=== PATIENT | male | born 1975 | race Caucasian/White ===

== ENCOUNTER 2017-02-06 16:45 | Emergency (ER) | payer OTHER ==
[~2017-02-06] VITALS: Ht 170.2 cm; Wt 88.0 kg
[~2017-02-06 16:45] MED LIST: ALBU8I INH; CONTOUR1 XX; IBUP600T26 PO; LANTUS2P SC; LISI-363 PO; NAPR220T95 PO; NOVORP2 SQ
[2017-02-06 16:50] VITALS: BP 159/95; PULSE 100; RESP 16; TEMP 98; O2SAT 98
[2017-02-06] MEDS ORDERED: NOVOLOGMXP SQ ×2 (17:02)
[2017-02-06] MEDS ORDERED: ACETAMINOPHEN/HYDROcodone 325 MG/5 MG TAB PO ONE (17:15)
--- NOTE | 2017-02-06 17:16 | PD ---
HPI Chief Complaint: Pain: Acute or Chronic Time Seen by Provider: 16:54 Travel History International Travel<30 days: No Contact w/Intl Traveler<30days: No Traveled to known affect area: No History of Present Illness HPI This 41-year-old male says he been having pain in his left testicle for the last 3 months. He believes it started when he was lifting a heavy cement object. It has been present since that time and seems worse the last week. He has a little bit of trouble urinating sometimes has to hesitate before he goes. He is not aware of fever. He does not have a history of urethral discharge. He does have a history of diabetes PFSH Past Medical History Hx Anticoagulant Therapy: No Asthma: Yes Autoimmune Disease: Yes Cancer: No Cardiovascular Problems: Yes (HTN) Diabetes: Yes Patient Takes Glucophage: No Endocrine: Yes Immune Disorder: No Psychiatric: No Reproductive: No Respiratory: Yes (asthma) Thyroid Disease: No Tetanus Vaccination: < 5 Years Influenza Vaccination: Yes Past Surgical History Oral Surgery: Yes (Adenoids ) Other Surgery: Yes (adenoidectomy) Social History Alcohol Use: Yes (12 pack daily) Tobacco Use: Yes (10/28 PPD) Substance Use: No Allergies-Medications (Allergen,Severity, Reaction): Coded Allergies: Shellfish (Verified Allergy, Severe, 02/06/17) Reported Meds & Prescriptions Reported Meds & Active Scripts Active Reported Novolog Mix 70-30 Inj (Insulin Aspart Prota 70%/Aspart 30%) 1,000 Unit/10 Ml Vial 30 Units SQ HS Novolog Mix 70-30 Inj (Insulin Aspart Prota 70%/Aspart 30%) 1,000 Unit/10 Ml Vial 25 Units SQ DAILY Review of Systems General / Constitutional: No: Fever Eyes: No: Diploplia, Blurred Vision HENT: No: Headaches, Vertigo Cardiovascular: No: Chest Pain or Discomfort, Palpitations Respiratory: No: Cough, Shortness of Breath Gastrointestinal: No: Vomiting, Diarrhea Genitourinary: Positive: Dysuria Musculoskeletal: No: Myalgias, Arthralgias Skin: No Rash, No Itching Neurologic: No: Weakness Physical Exam Narrative GENERAL: Well-developed male SKIN: Focused skin assessment warm/dry. HEAD: Atraumatic. Normocephalic. EYES: Pupils equal and round. No scleral icterus. No injection or drainage. ENT: No nasal bleeding or discharge. Mucous membranes pink and moist. NECK: Trachea midline. No JVD. CARDIOVASCULAR: Regular rate and rhythm. No murmur appreciated. RESPIRATORY: No accessory muscle use. Clear to auscultation. Breath sounds equal bilaterally. GASTROINTESTINAL: Abdomen soft, non-tender, nondistended. Hepatic and splenic margins not palpable. : Right testicle is nontender. Somewhat diffuse tenderness of the left testicle. It is not high riding. There is no hernia palpable on the left side laying or standing MUSCULOSKELETAL: No obvious deformities. No clubbing. No cyanosis. No edema. NEUROLOGICAL: Awake and alert. No obvious cranial nerve deficits. Motor grossly within normal limits. Normal speech. PSYCHIATRIC: Appropriate mood and affect; insight and judgment normal. Data Data Last Documented VS Vital Signs Date Time Temp Pulse Resp B/P Pulse Ox O2 Delivery O2 Flow Rate FiO2 02/06/17 19:27 84 18 148/82 98 Room Air 02/06/17 16:50 98.0 Orders Urinalysis - C+S If Indicated (02/06/17 17:11) Acetamin-Hydrocod 325-5 Mg ([place] 5-325 (02/06/17 17:15) Complete Blood Count With Diff (02/06/17 17:53) Basic Metabolic Panel (Bmp) (02/06/17 17:53) Sodium Chlor 0.9% 1000 Ml Inj (Ns 1000 M (02/06/17 18:00) Ceftriaxone Inj (Rocephin Inj) (02/06/17 18:00) Us Testicles W Doppler (02/06/17 17:57) Insulin Human Regular Inj (Novolin R Inj (02/06/17 19:15) Labs Laboratory Tests Test 02/06/17 02/06/17 17:30 18:00 Urine Color YELLOW Urine Turbidity CLEAR Urine pH 6.0 Urine Specific [place] 1.034 Urine Protein NEG mg/dL Urine Glucose (UA) 1000 OR GREATER mg/dL Urine Ketones TRACE mg/dL Urine Occult Blood NEG Urine Nitrite NEG Urine Bilirubin NEG Urine Leukocyte Esterase NEG Urine Squamous Epithelial 0-5 /hpf Cells Microscopic Urinalysis Comment CULT NOT INDICATED White Blood Count 7.5 TH/MM3 Red Blood Count 4.41 MIL/MM3 Hemoglobin 14.3 GM/DL Hematocrit 41.3 % Mean Corpuscular Volume 93.7 FL Mean Corpuscular Hemoglobin 32.5 PG Mean Corpuscular Hemoglobin 34.6 % Concent Red Cell Distribution Width 11.6 % Platelet Count 268 TH/MM3 Mean Platelet Volume 8.6 FL Neutrophils (%) (Auto) 62.0 % Lymphocytes (%) (Auto) 22.8 % Monocytes (%) (Auto) 11.6 % Eosinophils (%) (Auto) 1.7 % Basophils (%) (Auto) 1.9 % Neutrophils # (Auto) 4.7 TH/MM3 Lymphocytes # (Auto) 1.7 TH/MM3 Monocytes # (Auto) 0.9 TH/MM3 Eosinophils # (Auto) 0.1 TH/MM3 Basophils # (Auto) 0.1 TH/MM3 CBC Comment DIFF FINAL Differential Comment Sodium Level 139 MEQ/L Potassium Level 4.5 MEQ/L Chloride Level 103 MEQ/L Carbon Dioxide Level 23.7 MEQ/L Anion Gap 12 MEQ/L Blood Urea Nitrogen 10 MG/DL Creatinine 0.85 MG/DL Estimat Glomerular Filtration 98 ML/MIN Rate Random Glucose 322 MG/DL Calcium Level 8.7 MG/DL [facility] Medical Decision Making Medical Screen Exam Complete: Yes Emergency Medical Condition: Yes Medical Record Reviewed: Yes Differential Diagnosis Differential includes epididymoorchitis, prostatitis and testicular cancer Narrative Course Urinalysis is negative for infection. Ultrasound of the testicle is normal. Impression is orchitis. He has been given Rocephin and Cipro will be given as an outpatient Diagnosis Primary Impression: Orchitis Scripts Hydrocodone-Acetaminophen (Lortab)7.5-325 Mg Tab1 Tab PO Q4H PRN (PAIN) #15 TAB Ref 0 Prov:Juan Benton MD 02/06/17 Ciprofloxacin (Cipro)500 Mg Ejb365 Mg PO BID #20 TAB Ref 0 Prov:Juan Benton MD 02/06/17 Disposition: 01 DISCHARGE HOME Condition: Stable Juan Benton MD Feb 06, 2017 17:16
[2017-02-06 17:49] LABS: BLOOD, URINE NEG (NEG); KETONE, URINE TRACE mg/dL (NEG); NITRITE,URINE NEG (NEG)
[2017-02-06 17:51] LABS: GLUCOSE,URINE 1000 OR GREATER mg/dL (NEG)
[2017-02-06 17:54] LABS: COMMENT (UR) CULT NOT INDICATED; CULTURE IF INDICATED CULT NOT INDICATED; SQUAMOUS EPITHELIAL CELL URINE 0-5 /hpf (0-5); URINE COLOR YELLOW (YELLW/STRAW)
[2017-02-06] MEDS ORDERED: cefTRIAXone INJ 1,000 MG in SODIUM CHLORIDE 0.9% INJ 100 ML IV ONE (18:00)
[2017-02-06] MEDS ORDERED: SODIUM CHLOR 0.9% 1000 ML INJ 1,000 ML IV ONE (18:00)
[2017-02-06 18:42] LABS: AUTOMATED NEUTROPHIL # 4.7 TH/MM3 (1.8-7.7); BASOPHIL # 0.1 TH/MM3 (0-0.2); BASOPHIL % 1.9 % (0.0-2.0); EOSINOPHIL # 0.1 TH/MM3 (0-0.4); EOSINOPHIL % 1.7 % (0.0-4.0); HEMATOCRIT 41.3 % (39.0-51.0); HEMO FLAGS DIFF FINAL; LYMPH % 22.8 % (9.0-44.0); LYMPHOCYTE # 1.7 TH/MM3 (1.0-4.8); MEAN CELL VOLUME 93.7 FL (80.0-100.0); MEAN CORPUSCULAR HEMOGLOBIN 32.5 PG (27.0-34.0); MEAN CORPUSCULAR HGB CONC 34.6 % (32.0-36.0); MONO % 11.6 % (0.0-8.0); PLATELET COUNT 268 TH/MM3 (150-450); RED BLOOD COUNT 4.41 MIL/MM3 (4.50-5.90); RED CELL DISTRIBUTION WIDTH 11.6 % (11.6-17.2); WHITE BLOOD COUNT 7.5 TH/MM3 (4.0-11.0)
[2017-02-06 18:49] LABS: POTASSIUM 4.5 MEQ/L (3.5-5.1)
[2017-02-06 18:52] LABS: BICARBONATE 23.7 MEQ/L (21.0-32.0)
[2017-02-06] MEDS ORDERED: INSULIN HUMAN REGULAR 1,000 UNITS/10 ML VIAL SQ ONE (19:15)
[2017-02-06 19:27] VITALS: BP 148/82; PULSE 84; RESP 18; O2SAT 98
--- NOTE | 2017-02-06 19:58 | RADHPO ---
EXAM DATE/TIME: 02/06/2017 18:38 [facility] COMPARISON: No previous studies available for comparison. INDICATIONS : Left testicle pain for three months after lifting heavy cement object, worse in the last week. MEDICAL HISTORY : Diabetic. Autoimmune disease. Hypertension. SURGICAL HISTORY : Appendectomy. Adenoidectomy. ENCOUNTER: Initial ACUITY: 3 months PAIN SCORE: 10/10 LOCATION: Bilateral testicles. MEASUREMENTS: RIGHT TESTICLE: 3.2 x 3.3 x 2.7cm LEFT TESTICLE: 3.0 x 3.1 x 2.6cm FINDINGS: RIGHT TESTICLE: Homogeneous echotexture without intra or extratesticular mass. Blood flow is symmetric and within no rmal limits. No hydrocele or varicocele. Tiny epididymal cyst. LEFT TESTICLE: Homogeneous echotexture without intra or extratesticular mass. Blood flow is symmetric and within no rmal limits. No hydrocele or varicocele. Epididymis is within normal limits. SCROTUM: Within normal limits. Mildly prominent left inguinal lymph nodes. CONCLUSION: Testicles are normal. No evidence of mass or torsion Julius Greenberg MD on February 06, 2017 at 19:55 Board Certified Radiologist. This report was verified electronically.
[2017-02-06] MEDS ORDERED: CIPR-9 PO ×2 (20:07→20:08)
[2017-02-06] MEDS ORDERED: HYDR-3534 PO ×2 (20:07→20:08)
[2017-02-06 20:17] VITALS: PULSE 82; RESP 18; O2SAT 98
== END 2017-02-06 20:38 | disposition home or self-care (01) ==
LOC: PHED 16:45
DX: N45.2 Orchitis (principal); E11.9 Type 2 diabetes mellitus without complications; I10 Essential (primary) hypertension; Z17.0 Estrogen receptor positive status [ER+]; Z79.4 Long term (current) use of insulin
CPT/HCPCS: 76870; 80048; 81001; 85025; 93975; 96365; 96372; 99284; J0696; J1815; J7030

== ENCOUNTER 2017-03-09 00:27 | Emergency (ER) | payer OTHER ==
[~2017-03-09] VITALS: Ht 172.7 cm; Wt 83.0 kg
[~2017-03-09 00:27] MED LIST changes: -ALBU8I INH; +CIPR-9 PO; -CONTOUR1 XX; +HYDR-3534 PO; -IBUP600T26 PO; -LANTUS2P SC; -LISI-363 PO; -NAPR220T95 PO; +NOVOLOGMXP SQ; -NOVORP2 SQ
[2017-03-09] MEDS ORDERED: NOVOLOGMXP SQ ×2 (00:40→00:41)
[2017-03-09 00:42] VITALS: BP 162/89; PULSE 112; RESP 24; TEMP 98; O2SAT 99
[2017-03-09] MEDS: RESP: ALBUTEROL 2.5 MG/IPRATROPIUM 0.5 MG NEB (SCH) INH ×5 (00:44→02:09)
[2017-03-09] MEDS ORDERED: methylPREDNISolone SOD SUCC 125 MG/2 ML VIAL IVP ONE (00:45)
[2017-03-09] MEDS ORDERED: SODIUM CHLORIDE 0.9% FLUSH 10 ML FLUSH IVF PRN (00:45)
[2017-03-09 01:09] VITALS: O2SAT 99
--- NOTE | 2017-03-09 01:16 | PD ---
HPI Chief Complaint: Respiratory Symptoms Time Seen by Provider: 00:35 Travel History International Travel<30 days: No Contact w/Intl Traveler<30days: No Traveled to known affect area: No History of Present Illness HPI The patient is a 41-year-old male that has had difficulty breathing since Thursday, 5 days. The breathing became worse today. He denies any fever. He is allergic to shellfish and he works with shellfish in the kitchen. He states shellfish don't bother him unless he actually eats them. He denies any nausea, vomiting or diarrhea. The patient admits to smoking one third pack a day. PFSH Past Medical History Hx Anticoagulant Therapy: No Asthma: Yes Autoimmune Disease: Yes Cancer: No Cardiovascular Problems: Yes (HTN) Diabetes: Yes (type 2 insulin dependent) Patient Takes Glucophage: No Endocrine: Yes Immune Disorder: No Psychiatric: No Reproductive: No Respiratory: Yes (ashtma as kid) Thyroid Disease: No Tetanus Vaccination: < 5 Years Past Surgical History Oral Surgery: Yes (Adenoids ) Other Surgery: Yes (adenoidectomy) Social History Alcohol Use: Yes (few beers daily) Tobacco Use: Yes (10/28 PPD) Substance Use: No Allergies-Medications (Allergen,Severity, Reaction): Coded Allergies: Shellfish (Verified Allergy, Severe, 03/09/17) Reported Meds & Prescriptions Reported Meds & Active Scripts Active Prednisone 50 Mg Tab 50 Mg PO BID Proventil Hfa 6.7 GM Inh (Albuterol Sulfate) 90 Mcg/Act Aer 2 Puff INH Q4-6H PRN Cipro (Ciprofloxacin HCl) 500 Mg Tab 500 Mg PO BID Reported Novolog Mix 70-30 Inj (Insulin Aspart Prota 70%/Aspart 30%) 1,000 Unit/10 Ml Vial 30 Units SQ DAILY Novolog Mix 70-30 Inj (Insulin Aspart Prota 70%/Aspart 30%) 1,000 Unit/10 Ml Vial 40 Units SQ HS Review of Systems Except as stated in HPI: all other systems reviewed are Neg Physical Exam Narrative GENERAL: The patient is alert, oriented 3, extremely anxious, in slight respiratory distress. His vital signs show blood pressure 162/89 with a heart rate of 112 and respirations 24 and oximetry 99%. The patient does appear to be hyperventilating unnecessarily. SKIN: Focused skin assessment warm/dry. HEAD: Atraumatic. Normocephalic. EYES: Pupils equal and round. No scleral icterus. No injection or drainage. ENT: No nasal bleeding or discharge. Mucous membranes pink and moist. NECK: Trachea midline. No JVD. CARDIOVASCULAR: Regular rate and rhythm. No murmur appreciated. RESPIRATORY: No accessory muscle use. Lungs show bilateral wheezes in all lung palma. Breath sounds equal bilaterally. GASTROINTESTINAL: Abdomen soft, non-tender, nondistended. Hepatic and splenic margins not palpable. MUSCULOSKELETAL: No obvious deformities. No clubbing. No cyanosis. No edema. NEUROLOGICAL: Awake and alert. No obvious cranial nerve deficits. Motor grossly within normal limits. Normal speech. PSYCHIATRIC: Appropriate mood and affect; insight and judgment normal. Data Data Last Documented VS Vital Signs Date Time Temp Pulse Resp B/P Pulse Ox O2 Delivery O2 Flow Rate FiO2 03/09/17 01:09 99 Room Air 03/09/17 00:46 24 03/09/17 00:42 98.0 112 162/89 Orders Albuterol-Ipratropium Neb (Duoneb Neb) (03/09/17 00:45) Prednisone (Deltasone) (03/09/17 01:30) Chest, Pa & Lat (03/09/17 01:49) Albuterol-Ipratropium Neb (Duoneb Neb) (03/09/17 02:00) Resp Mdi/Instruction (03/09/17 ) MDM Medical Decision Making Medical Screen Exam Complete: Yes Emergency Medical Condition: Yes Medical Record Reviewed: Yes Interpretation(s) The chest x-ray shows no acute disease. Differential Diagnosis Acute asthma, pneumonia, bronchitis, anxiety/hyperventilation, hypoxemia, COPD with acute exacerbation. 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 It is entirely possible that these fumes are causing his bronchospasm. He does not have a pneumonia. He seems to clear up quite well here. He also needs to quit smoking. Additional Instructions: Try to find a primary care physician. If worse, he will need to return to emergency department. The prednisone is one tablet twice daily for 4 days followed by one tablet once daily for 4 days. It may be that you are breathing in fumes of shellfish and this is causing her respiratory problems. Also, quit smoking. Scripts Prednisone 50 Mg Tab50 Mg PO BID #12 TAB Ref 0 Prov:Matt Kowalski MD 03/09/17 Albuterol 6.7 GM Inh (Proventil Hfa 6.7 GM Inh)90 Mcg/Act Aer2 Puff INH Q4-6H PRN (SHORTNESS OF BREATH) #1 INHALER Ref 0 Prov:Matt Kowalski MD 03/09/17 Disposition: 01 DISCHARGE HOME Condition: Stable Matt Kowalski MD March 09, 2017 01:16
[2017-03-09] MEDS ORDERED: predniSONE 20 MG TAB PO ONE (01:30)
[2017-03-09] MEDS ORDERED: PRED50 PO (01:52)
[2017-03-09] MEDS ORDERED: ALBU6.7H INH (01:52)
--- NOTE | 2017-03-09 02:38 | RADHPO ---
EXAM DATE/TIME: 03/09/2017 02:01 [facility] COMPARISON: CHEST SINGLE AP, January 03, 2016, 15:43. INDICATIONS : Short of breath. MEDICAL HISTORY : None. SURGICAL HISTORY : None. ENCOUNTER: Initial ACUITY: 1 day PAIN SCORE: 6/10 LOCATION: Bilateral chest FINDINGS: PA and lateral views of the chest demonstrate the lungs to be symmetrically aerated without evidence of mass, infiltrate or effusion. The cardiomediastinal contours are unremarkable. Osseous structure s are intact. CONCLUSION: No acute disease. Magdy Lee MD on March 09, 2017 at 2:36 Board Certified Radiologist. This report was verified electronically.
[2017-03-09 03:01] VITALS: BP_SYST 146; BP_SYST 155; BP_DIAS 86; TEMP 98
== END 2017-03-09 03:20 | disposition home or self-care (01) ==
LOC: PHED 00:27
DX: J45.909 Unspecified asthma, uncomplicated (principal); I10 Essential (primary) hypertension; E11.9 Type 2 diabetes mellitus without complications; F17.200 Nicotine dependence, unspecified, uncomplicated; Z79.4 Long term (current) use of insulin; Z79.899 Other long term (current) drug therapy
CPT/HCPCS: 71020; 94640; 94664; 99283; J7512

== ENCOUNTER 2017-04-03 22:27 | Inpatient (IN) | payer OTHER ==
[~2017-04-03] VITALS: Ht 170.2 cm; Wt 81.5 kg
[~2017-04-03 22:27] MED LIST changes: +ALBU6.7H INH; -HYDR-3534 PO; +PRED50 PO
[2017-04-03] MEDS ORDERED: SODIUM CHLOR 0.9% 1000 ML INJ 1,000 ML IV ONE ×2 (22:51→23:21)
[2017-04-03 23:00] VITALS: BP 126/74; PULSE 104; RESP 18; TEMP 98.3; O2SAT 97
[2017-04-03] MEDS ORDERED: SODIUM CHLORIDE 0.9% FLUSH 10 ML FLUSH IVF PRN (23:00)
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
[2017-04-03 23:11] LABS: HEMATOCRIT 48.3 % (39.0-51.0); MEAN CELL VOLUME 93.4 FL (80.0-100.0); MEAN CORPUSCULAR HGB CONC 33.3 % (32.0-36.0); PLATELET COUNT 349 TH/MM3 (150-450); RED BLOOD COUNT 5.18 MIL/MM3 (4.50-5.90); RED CELL DISTRIBUTION WIDTH 11.4 % (11.6-17.2); WHITE BLOOD COUNT 10.9 TH/MM3 (4.0-11.0)
[2017-04-03 23:12] LABS: HEMO FLAGS AUTO DIFF
[2017-04-03 23:15] LABS: BLOOD GAS VENOUS BASE EXCESS -6.3 mmol/L (-2-2); BLOOD GAS VENOUS HCO3 19 mmol/L (22-26); BLOOD GAS VENOUS O2 CONTENT 15.6 Vol % (9.0-17.0); BLOOD GAS VENOUS O2 HGB SAT 75 % (70-76); BLOOD GAS VENOUS PCO2 36 mmHg (44-48); BLOOD GAS VENOUS PO2 47 mmHg (35-40); BLOOD GAS VENOUS pH 7.33 (7.360-7.400); CRITICAL VALUE NO; DRAW SITE IV; FIO2 21 %; OXYGEN DEVICE ROOM AIR; STAT YES; TEMP CORR TO 98.6
[2017-04-03 23:18] LABS: CHLORIDE 88 MEQ/L (98-107); POTASSIUM 4.9 MEQ/L (3.5-5.1); SODIUM (NA) 131 MEQ/L (136-145)
[2017-04-03 23:23] LABS: ANION GAP 21 MEQ/L (5-15); BICARBONATE 22.1 MEQ/L (21.0-32.0); BLOOD UREA NITROGEN 19 MG/DL (7-18); MAGNESIUM 2.4 MG/DL (1.5-2.5)
[2017-04-03 23:25] LABS: ALT (GPT) 37 U/L (12-78); AST (GOT) 36 U/L (15-37); GLOMERULAR FILTRATION RATE 60 ML/MIN (>89)
[2017-04-03 23:28] LABS: EOSINOPHILS 2 % (0-4); NEUTROPHIL # MANUAL DIFF 8.9 TH/MM3 (1.8-7.7); PLATELET ESTIMATE SMEAR NORMAL (NORMAL); PLATELET MORPHOLOGY NORMAL (NORMAL); POLYS (SEG NEUTROPHILS) 82 % (16-70); WBC DIFF SAMPLE 100
[2017-04-03 23:29] LABS: SCAN/DIFF FINAL DIFF MANUAL
[2017-04-03 23:32] LABS: ALKALINE PHOSPHATASE 114 U/L (45-117)
[2017-04-03 23:39] LABS: BLOOD, URINE NEG (NEG); KETONE, URINE 15 mg/dL (NEG); NITRITE,URINE NEG (NEG); PH, URINE 5.5 (5.0-8.5)
[2017-04-03 23:43] LABS: BETA-HYDROXYBUTYRATE 7.09 MMOL/L (0.00-0.39)
[2017-04-03] MEDS: DEXT 5%-NACL 0.9% 1000 ML INJ 1,000 ML IV SCH (23:51)
[2017-04-03 23:55] LABS: GLUCOSE,URINE 1000 OR GREATER mg/dL (NEG); URINE COLOR YELLOW (YELLW/STRAW)
[2017-04-03 23:56] LABS: COMMENT (UR) CULT NOT INDICATED; CULTURE IF INDICATED CULT NOT INDICATED; RBC, URINE 0-2 /hpf (0-3); SQUAMOUS EPITHELIAL CELL URINE 0-5 /hpf (0-5); WBC, URINE 0-2 /hpf (0-5)
[2017-04-04] VITALS (23 sets, daily range): BP systolic 104–157; BP diastolic 52–83; PULSE 78–101; RESP 10–21; TEMP 97.4–98.6; O2SAT 91–98
[2017-04-04] MEDS ORDERED: POTASSIUM CHLOR 40 MEQ PREMIX 100 ML IV PRN ×2
[2017-04-04] MEDS ORDERED: INSULIN REGULAR (IV INFUSION) 100 UNITS in SODIUM CHLORIDE 0.9% INJ 99 ML IV SCH ×2
[2017-04-04] MEDS ORDERED: POTASSIUM CHLOR 20 MEQ PREMIX 100 ML IV PRN ×6
[2017-04-04] MEDS ORDERED: SODIUM PHOSPHATE INJ 15 MMOL in SODIUM CHLORIDE 0.9% INJ 100 ML IV PRN ×2
[2017-04-04] MEDS ORDERED: SODIUM BICARBONATE 8.4% SOLN 50 MEQ/50 ML VIAL IV PRN ×2
[2017-04-04] MEDS ORDERED: SODIUM CHLOR 0.9% 1000 ML INJ 1,000 ML IV ONE (00:15)
[2017-04-04] MEDS ORDERED: ACETAMINOPHEN/HYDROcodone 325 MG/5 MG TAB PO PRN (00:30)
[2017-04-04] MEDS ORDERED: LACTULOSE SYRUP 20 GM/30 ML CUP PO PRN (00:30)
[2017-04-04] MEDS ORDERED: SODIUM CHLORIDE 0.9% FLUSH 10 ML FLUSH IV FLUSH PRN (00:30)
[2017-04-04] MEDS ORDERED: ACETAMINOPHEN 325 MG TAB PO PRN (00:30)
[2017-04-04] MEDS ORDERED: BISACODYL 10 MG SUPP RECTAL PRN (00:30)
[2017-04-04] MEDS ORDERED: MAGNESIUM HYDROXIDE SUSP 30 ML CUP PO PRN (00:30)
[2017-04-04] MEDS ORDERED: SENNOSIDES 8.6 MG TAB PO PRN (00:30)
[2017-04-04] MEDS ORDERED: MORPHINE SULFATE 4 MG/ML INJ IV PRN (00:30)
[2017-04-04] MEDS ORDERED: ONDANSETRON HCL 4 MG/2 ML VIAL IVP PRN (00:30)
[2017-04-04] MEDS: SODIUM CHLOR 0.9% 1000 ML INJ 1,000 ML IV SCH ×5 (00:34→15:51)
[2017-04-04] MEDS: DEXT 5%-NACL 0.9% 1000 ML INJ 1,000 ML IV SCH ×3 (04:51→14:51)
[2017-04-04 06:35] LABS: BICARBONATE 19.5 MEQ/L (21.0-32.0); POTASSIUM 4.1 MEQ/L (3.5-5.1)
[2017-04-04] MEDS ORDERED: CHLORHEXIDINE GLUCONATE 2 % 1 PACK (2 CLOTHS)(extra cloths) TOPICAL PRN (06:45)
[2017-04-04] MEDS: DOCUSATE SODIUM 50 MG/SENNA 8.6 MG TAB PO SCH ×2 (09:00→20:18)
[2017-04-04] MEDS: SODIUM CHLORIDE 0.9% FLUSH 10 ML FLUSH IV FLUSH SCH ×2 (09:00→20:18)
--- NOTE | 2017-04-04 09:31 | HHI.HP ---
[facility] No Primary Care Physician Admission Diagnosis DKA/Hyperglycemia/Dehydration/Lactic Acidosis. Diagnoses: (1) Diabetic ketoacidosis Diagnosis: Principal (2) Lactic acidosis Diagnosis: Principal Chief Complaint: Nausea and vomiting and uncontrolled diabetes Travel History International Travel<30 Days: No Contact w/Intl Traveler <30 Da: No Traveled to Known Affected Are: No History of Present Illness Written by Santosh Kowalski, acting as scribe for Dr. Florian on 04/04/17 at 09: 23. 41-year-old male with known history of diabetes who presented to the hospital because he had nausea, vomiting and he knew his diabetes was uncontrolled. Patient usually manages his diabetes with 90 line 70/30 insulin 30 units in the morning and 40 units in the evening. Apparently 2 days ago his significant other evacuated him from the house. Patient states that he had to leave without any of his medications, wallet, money. He was unable to obtain any insulin. He started developing symptoms with dry mouth, nausea, vomiting and he knew his diabetes is uncontrolled so he came to the emergency department for evaluation. Patient was found to be in diabetic ketoacidosis and started on insulin IV in the ICU. Patient states that he does not have a primary medical doctor or insurance at this time. I counseled patient extensively on need to control his diabetes. He is rachel that he is in the hospital this time because without his insulin he could cause significant damage to his self and even . Review of Systems Constitutional: DENIES: Diaphoretic episodes, Fatigue, Fever, Weight gain, Weight loss, Chills, Dizziness, Change in appetite, Night Sweats Eyes: DENIES: Blurred vision, Diplopia, Eye inflammation, Eye pain, Vision loss , Double Vision Ears, nose, mouth, throat: DENIES: Hearing loss, Nasal discharge, Throat pain, Ear Pain, Running Nose, Sinus Pain, Odynophagia Respiratory: DENIES: Apneas, Cough, Snoring, Wheezing, Hemoptysis, Sputum production, Shortness of breath Cardiovascular: DENIES: Chest pain, Palpitations, Syncope, Dyspnea on Exertion , PND, Lower Extremity Edema, Orthopnea, Claudication Gastrointestinal: COMPLAINS OF: Nausea, Vomiting, DENIES: Abdominal pain, Black stools, Bloody stools, Constipation, Diarrhea, Difficulty Swallowing, Anorexia Neurologic: DENIES: Abnormal gait, Headache, Localized weakness, Paresthesias, Seizures, Speech Problems, Tremor, Poor Balance Past Family Social History Past Medical History Diabetes Asthma Past Surgical History Tonsillectomy Reported Medications Reported Meds & Active Scripts Active Reported Novolog Mix 70-30 Inj (Insulin Aspart Prota 70%/Aspart 30%) 1,000 Unit/10 Ml Vial 30 Units SQ DAILY Novolog Mix 70-30 Inj (Insulin Aspart Prota 70%/Aspart 30%) 1,000 Unit/10 Ml Vial 40 Units SQ HS Allergies: Coded Allergies: Shellfish (Verified Allergy, Severe, 04/03/17) Family History Reviewed is significant for his father being "healthy as an ox". Mother with diabetes Social History Patient smokes one third pack of cigarettes daily since he was 15 years old. Does drink alcohol occasionally. Denies any illicit drugs. Patient states that he used to have a drug problem in the past Physical Exam Vital Signs Vital Signs Date Time Temp Pulse Resp B/P Pulse Ox O2 Delivery O2 Flow Rate FiO2 04/04/17 07:00 100 04/04/17 06:33 91 04/04/17 04:40 100 04/04/17 04:33 96 19 113/60 94 04/04/17 03:08 97.9 96 18 155/75 92 04/04/17 02:57 99 18 98 04/04/17 02:52 100 18 157/80 93 04/04/17 02:13 98 18 119/54 98 Room Air 04/04/17 00:44 101 18 126/58 98 Room Air 04/03/17 23:00 98.3 104 18 126/74 97 04/03/17 23:00 18 97 Room Air 04/03/17 23:00 18 97 Room Air Physical Exam GENERAL: Well-developed, well-nourished, in no acute distress. alert and orientated HEENT: Head is normocephalic without any lesions or masses noted. Facial features are symmetric. Eyes: Pupils equal round reactive to light. Extraocular muscles are intact. Conjunctivae were clear. Oropharyngeal: Pharynx without any erythema edema. Tongue is midline without deviation. Buccal mucosa is moist without any masses or lesions NECK: Supple without any masses. Trachea midline no deviation. No JVD, no bruits are appreciated CARDIAC: Regular rhythm, regular rate. S1/S2 are heard. No murmurs gallops or rubs. LUNGS: Clear to auscultation bilaterally. No wheeze, rhonchi or rales. No use of accessory muscles on inspiration or expiration. ABDOMEN: Soft, nontender. Nondistended. Bowel sounds heard in all 4 quadrants. No organomegaly or masses. Negative rebound, negative guarding EXTREMITIES: No edema, pulses are equal bilaterally. No cyanosis or clubbing NEUROLOGY: Mood and affect appear appropriate. Cranial nerves II through XII grossly intact. Muscle strength 5/5 in upper and lower extremities bilaterally. Deep tendon reflexes are 2+ in upper and lower extremities bilaterally. Laboratory Laboratory Tests Test 04/03/17 04/03/17 04/03/17 04/04/17 23:00 23:05 23:30 01:18 White Blood Count 10.9 Red Blood Count 5.18 Hemoglobin 16.1 Hematocrit 48.3 Mean Corpuscular Volume 93.4 Mean Corpuscular Hemoglobin 31.0 Mean Corpuscular Hemoglobin 33.3 Concent Red Cell Distribution Width 11.4 Platelet Count 349 Mean Platelet Volume 9.2 Neutrophils (%) (Auto) Lymphocytes (%) (Auto) Monocytes (%) (Auto) Eosinophils (%) (Auto) Basophils (%) (Auto) Neutrophils # (Auto) Lymphocytes # (Auto) Monocytes # (Auto) Eosinophils # (Auto) Basophils # (Auto) CBC Comment AUTO DIFF Differential Total Cells 100 Counted Neutrophils % (Manual) 82 Lymphocytes % 12 Monocytes % 4 Eosinophils % 2 Neutrophils # (Manual) 8.9 Differential Comment FINAL DIFF MANUAL Platelet Estimate NORMAL Platelet Morphology Comment NORMAL Red Cell Morphology Comment NORMAL Sodium Level 131 Potassium Level 4.9 Chloride Level 88 Carbon Dioxide Level 22.1 Anion Gap 21 Blood Urea Nitrogen 19 Creatinine 1.30 Estimat Glomerular Filtration 60 Rate Random Glucose 780 703 Lactic Acid Level 4.7 Calcium Level 10.2 Phosphorus Level 5.0 Magnesium Level 2.4 Total Bilirubin 1.0 Aspartate Amino Transf 36 (AST/SGOT) Alanine Aminotransferase 37 (ALT/SGPT) Alkaline Phosphatase 114 Total Protein 8.0 Albumin 3.9 Lipase 88 B-Hydroxybutyrate 7.09 Blood Gas Puncture Site IV Blood Gas Patient Temperature 98.6 Venous Blood pH 7.33 Venous Blood Partial Pressure 36 CO2 Venous Blood Partial Pressure 47 O2 Venous Blood HCO3 19 Venous Blood Oxygen Saturation 75 Venous Blood Oxygen Content 15.6 Venous Blood Base Excess -6.3 Oxygen Delivery Device ROOM AIR Blood Gas Inspired Oxygen 21 Urine Color YELLOW Urine Turbidity CLEAR Urine pH 5.5 Urine Specific [place] 1.032 Urine Protein NEG Urine Glucose (UA) 1000 OR GREATER Urine Ketones 15 Urine Occult Blood NEG Urine Nitrite NEG Urine Bilirubin NEG Urine Leukocyte Esterase NEG Urine RBC 0-2 Urine WBC 0-2 Urine Squamous Epithelial 0-5 Cells Urine Bacteria NONE Microscopic Urinalysis Comment CULT NOT INDICATED Test 04/04/17 05:35 Sodium Level 141 Potassium Level 4.1 Chloride Level 104 Carbon Dioxide Level 19.5 Anion Gap 18 Blood Urea Nitrogen 17 Creatinine 0.92 Estimat Glomerular Filtration 90 Rate Random Glucose 388 Calcium Level 8.2 Phosphorus Level 3.4 Magnesium Level 2.0 Result Diagram: 04/03/17 2300 04/04/17 0535 Assessment and Plan Assessment and Plan //Diabetic ketoacidosis in an insulin-dependent diabetic patient -Due to inability to get and use his insulin -Continue IV insulin protocol in the ICU -We will consult case management to arrange patient care assistance, blue card, follow up with Dr. De La Torre //Lactic acidosis -Likely secondary to above -Continue monitor lactic acid level //Hyponatremia, corrected -Likely pseudohyponatremia secondary to uncontrolled diabetes //DVT prevention -Sequential compression devices This note was transcribed by scribe [Santosh Kowalski]. I, Dr. Marcellus Florian personally performed the history, physical exam, and medical decision making; and confirmed the accuracy of the information in the transcribed note. Authenticated by Dr. Marcellus Florian on 04/05/17 at 19:33. Physician Certification 2 Midnight Certification Type: Admission for Inpatient Services Order for Inpatient Services The services are ordered in accordance with Medicare regulations or non- Medicare payer requirements, as applicable. In the case of services not specified as inpatient-only, they are appropriately provided as inpatient services in accordance with the 2-midnight benchmark. Estimated LOS (days): 2 days is the estimated time the patient will need to remain in the hospital, assuming treatment plan goals are met and no additional complications. Post-Hospital Plan: Not yet determined Santosh Kowalski Apr 04, 2017 09:31 Marcellus Florian MD Apr 05, 2017 19:33
[2017-04-04 11:45] LABS: CHLORIDE 111 MEQ/L (98-107); SODIUM (NA) 146 MEQ/L (136-145)
[2017-04-04 11:56] LABS: ANION GAP 8 MEQ/L (5-15); BICARBONATE 26.9 MEQ/L (21.0-32.0); BLOOD UREA NITROGEN 12 MG/DL (7-18); GLOMERULAR FILTRATION RATE 115 ML/MIN (>89); MAGNESIUM 2.1 MG/DL (1.5-2.5)
[2017-04-04 12:11] LABS: BETA-HYDROXYBUTYRATE 2.02 MMOL/L (0.00-0.39)
[2017-04-04 14:26] LABS: HEMOGLOBIN A1a 1.5 %; HEMOGLOBIN A1b 1.1 %; HEMOGLOBIN Ao 71.6 %; HEMOGLOBIN F 2.4 %; HEMOGLOBIN LA1C 4.1 %; HEMOGLOBIN P3 6.9 %
[2017-04-04] MEDS ORDERED: DEXTROSE 50% IN WATER 50 ML VIAL(D50) IV PRN (16:45)
[2017-04-04] MEDS ORDERED: GLUCAGON 1 MG/ML VIAL OTHER PRN (16:45)
[2017-04-04] MEDS ORDERED: INSULIN DETEMIR 100 UNITS/ML VIAL SQ ONE (17:00)
[2017-04-04 17:40] LABS: POTASSIUM 4.2 MEQ/L (3.5-5.1)
[2017-04-04 17:56] LABS: BICARBONATE 17.5 MEQ/L (21.0-32.0); MAGNESIUM 1.9 MG/DL (1.5-2.5)
[2017-04-04] MEDS ORDERED: INSULIN ASPART SUPPLEMENTAL SCALE SQ SCH (21:00)
[2017-04-04] MEDS ORDERED: INSULIN DETEMIR 100 UNITS/ML VIAL SQ SCH (21:00)
[2017-04-04 21:46] LABS: BETA-HYDROXYBUTYRATE 3.86 MMOL/L (0.00-0.39); BICARBONATE 21.5 MEQ/L (21.0-32.0); MAGNESIUM 1.7 MG/DL (1.5-2.5)
[2017-04-04 21:49] LABS: POTASSIUM 3.8 MEQ/L (3.5-5.1)
[2017-04-05] VITALS (17 sets, daily range): BP systolic 111–155; BP diastolic 55–89; PULSE 64–90; RESP 13–40; TEMP 97.7–98.2; O2SAT 91–99
[2017-04-05] MEDS ORDERED: CHLORHEXIDINE GLUCONATE 2 % 1 PACK (2 CLOTHS)(taper/protocol) TOPICAL SCH (04:00)
[2017-04-05] MEDS: INSULIN ASPART SUPPLEMENTAL SCALE SQ SCH ×4 (04:00→16:31)
[2017-04-05 07:23] LABS: BASOPHIL # 0.3 TH/MM3 (0-0.2); BASOPHIL % 4.4 % (0.0-2.0); EOSINOPHIL # 0.2 TH/MM3 (0-0.4); EOSINOPHIL % 3.4 % (0.0-4.0); HEMATOCRIT 39.3 % (39.0-51.0); HEMO FLAGS DIFF FINAL; LYMPH % 30.4 % (9.0-44.0); LYMPHOCYTE # 2.2 TH/MM3 (1.0-4.8); MEAN CELL VOLUME 91.1 FL (80.0-100.0); MEAN CORPUSCULAR HEMOGLOBIN 31.1 PG (27.0-34.0); MEAN CORPUSCULAR HGB CONC 34.2 % (32.0-36.0); MONO % 8.1 % (0.0-8.0); NEUT % 53.7 % (16.0-70.0); PLATELET COUNT 237 TH/MM3 (150-450); RED BLOOD COUNT 4.31 MIL/MM3 (4.50-5.90); RED CELL DISTRIBUTION WIDTH 11.6 % (11.6-17.2); WHITE BLOOD COUNT 7.3 TH/MM3 (4.0-11.0)
[2017-04-05 07:33] LABS: POTASSIUM 3.6 MEQ/L (3.5-5.1)
[2017-04-05 07:57] LABS: BICARBONATE 25.6 MEQ/L (21.0-32.0); MAGNESIUM 1.9 MG/DL (1.5-2.5)
[2017-04-05] MEDS: DOCUSATE SODIUM 50 MG/SENNA 8.6 MG TAB PO SCH (08:12)
[2017-04-05] MEDS: SODIUM CHLORIDE 0.9% FLUSH 10 ML FLUSH IV FLUSH SCH (08:12)
--- NOTE | 2017-04-05 09:58 | EKG ---
Date Performed: 04/03/2017 Time Performed: 23:08:38 PTAGE: 41 years EKG: --- Warning: Data quality may affect interpretation --- Sinus rhythm . Lead(s) unsuitable for analysis: V2 V3 rSr'(V1) - probable normal variant Normal ECG based on avail able leads NO PREVIOUS TRACING DOCTOR: Donavan Posada Interpretating Date/Time 04/05/2017 09:46:45
[2017-04-05] MEDS ORDERED: ALCO1PAD (10:20)
[2017-04-05] MEDS ORDERED: INSU1MIS (10:20)
[2017-04-05] MEDS ORDERED: LANCETS1 MI1 (10:20)
[2017-04-05] MEDS ORDERED: BLOOD GLUCOSE M1 KIT (10:20)
[2017-04-05] MEDS ORDERED: LEVEMIR SQ (10:20)
[2017-04-05] MEDS ORDERED: NOVOLOGSS SQ (10:20)
[2017-04-05] MEDS ORDERED: BLOOD GLUCOSE T1 TES (10:20)
--- NOTE | 2017-04-05 19:40 | HHI.PR ---
Subjective Remarks Patient seen this morning around 9:30 AM. Says he is feeling all right. Denies any chest pain or shortness breath. Says he is comfortable with injecting sliding scale. Objective Vital Signs Date Time Temp Pulse Resp B/P Pulse Ox O2 Delivery O2 Flow Rate FiO2 04/05/17 16:00 82 04/05/17 16:00 98.2 79 16 138/72 96 04/05/17 15:00 80 17 130/65 96 04/05/17 14:00 78 04/05/17 14:00 78 16 134/73 94 04/05/17 13:00 82 15 144/85 96 04/05/17 12:00 86 23 155/87 95 04/05/17 12:00 80 04/05/17 11:00 98.0 90 17 140/75 95 04/05/17 10:00 81 04/05/17 10:00 80 15 116/55 93 04/05/17 09:00 75 16 135/77 99 04/05/17 08:00 75 04/05/17 08:00 75 18 149/89 99 04/05/17 07:00 97.8 69 17 138/75 99 04/05/17 06:00 80 14 152/87 98 04/05/17 06:00 80 04/05/17 05:00 86 40 123/76 96 04/05/17 04:00 64 04/05/17 04:00 97.7 64 13 111/62 93 04/05/17 03:00 72 14 140/87 93 04/05/17 02:00 68 04/05/17 02:00 68 15 113/59 94 04/05/17 01:00 82 14 153/84 91 04/05/17 00:00 74 04/05/17 00:00 98.1 74 15 131/74 94 04/04/17 23:00 78 16 131/80 93 04/04/17 22:00 84 19 119/74 93 04/04/17 22:00 84 04/04/17 20:00 97.4 92 14 147/67 96 04/04/17 20:00 92 I/O 04/04/17 04/04/17 04/04/17 04/05/17 04/05/17 04/05/17 07:00 15:00 23:00 07:00 15:00 23:00 Intake Total 4040 ml 2947 ml 425 ml Output Total 1900 ml 400 ml 500 ml 650 ml Balance 2140 ml 2547 ml -500 ml -225 ml Intake Oral 200 ml 750 ml 425 ml IV Total 3840 ml 2197 ml 0 ml Output Urine Total 1900 ml 400 ml 500 ml 650 ml Stool Total 0 ml # Voids 5 1 3 # Bowel Movements 0 Result Diagram: 04/05/1770404/05/17704 Objective Remarks GENERAL: patient sitting up in bed. Appears comfortable. Alert and oriented 4. SKIN: Warm and dry. HEAD: Normocephalic. EYES: No scleral icterus. No injection or drainage. NECK: Supple, trachea midline. No JVD. CARDIOVASCULAR: Regular rate and rhythm without murmurs, gallops, or rubs. RESPIRATORY: Breath sounds equal bilaterally. No accessory muscle use. GASTROINTESTINAL: Abdomen soft, non-tender, nondistended. MUSCULOSKELETAL: No cyanosis, or edema. BACK: Nontender without obvious deformity. No CVA tenderness. A/P Assessment and Plan ====04/05/17 Diabetic ketoacidosis resolved. Gap closed. Some hypoglycemia overnight, but otherwise acceptable. A1c 12.5 indicating poor long-term control. Patient says he will be compliant, follow-up with primary care. //Diabetic ketoacidosis in an insulin-dependent diabetic patient -Due to inability to get and use his insulin -Continue IV insulin protocol in the ICU -Case management will arrange patient care assistance, blue card, follow up with Dr. De La Torre. Appreciate assistance -Diabetic ketoacidosis resolved. Gap closed. Some hypoglycemia overnight, but otherwise acceptable. A1c 12.5 indicating poor long-term control. Patient says he will be compliant, follow-up with primary care. //Lactic acidosis. Resolved. -Likely secondary to above -Continue monitor lactic acid level //Hyponatremia, corrected -Likely pseudohyponatremia secondary to uncontrolled diabetes //DVT prevention -Sequential compression devices Discharge Planning discharge home. Insulin sliding scale and Levemir. Patient will follow-up with primary care. Case management assistance appreciated. Marcellus Florian MD Apr 05, 2017 19:40
== END 2017-04-05 17:15 | disposition home or self-care (01) | DRG 638 ==
LOC: PHED 22:27 → PHEDA 04-04 00:16 → PHICU 04-04 02:50
PROVIDERS: ADMIT Internal Medicine; ATTEND Internal Medicine
DX: E13.10 Other specified diabetes mellitus with ketoacidosis without coma (principal); E87.1 Hypo-osmolality and hyponatremia; E86.0 Dehydration; Z79.4 Long term (current) use of insulin; T38.3X6A Underdosing of insulin and oral hypoglycemic [antidiabetic] drugs, initial encounter; Z91.138 Patient's unintentional underdosing of medication regimen for other reason; F17.210 Nicotine dependence, cigarettes, uncomplicated
CPT/HCPCS: 80048; 80053; 80069; 81001; 82010; 82805; 82947; 82948; 83036; 83605; 83690; 83735; 84100; 85007; 85025; 85027; 87641; 93005; 96360; J1815; J1817; J7030; J7042

== ENCOUNTER 2017-04-07 12:48 | Inpatient (IN) | payer OTHER ==
[~2017-04-07] VITALS: Ht 170.2 cm; Wt 82.0 kg
[2017-04-07] VITALS (10 sets, daily range): BP systolic 119–158; BP diastolic 62–82; PULSE 80–107; RESP 15–20; TEMP 98.4; O2SAT 96–100
[~2017-04-07 12:48] MED LIST changes: -ALBU6.7H INH; +ALCO1PAD; +BLOOD GLUCOSE M1 KIT; +BLOOD GLUCOSE T1 TES; -CIPR-9 PO; +INSU1MIS; +LANCETS1 MI1; +LEVEMIR SQ; -NOVOLOGMXP SQ; +NOVOLOGSS SQ; -PRED50 PO
--- NOTE | 2017-04-07 13:23 | PD ---
HPI Chief Complaint: Suicide Ideation/Attempt Time Seen by Provider: 13:07 Travel History International Travel<30 days: No Contact w/Intl Traveler<30days: No Traveled to known affect area: No History of Present Illness HPI 41-year-old male complains of anxiety, suicidal an elevated blood sugar. Patient has history of diabetes and has not been compliant with his insulin. Patient was admitted to [facility] April 04 and discharged April 05 with diagnosis of DKA. Patient states that he has not been compliant with his insulin since discharge. Patient states that he has family situation recently that he feeling suicidal subsequently. Patient states that he was all over the body. Patient denies any fever chills. Patient denies any coughing congestion. Patient denies any nausea vomiting diarrhea. Patient states that he has history of asthma. PFSH Past Medical History Hx Anticoagulant Therapy: No Asthma: Yes Autoimmune Disease: Yes Cancer: No Cardiovascular Problems: No Diabetes: Yes Patient Takes Glucophage: No Diminished Hearing: No Endocrine: Yes Gastrointestinal Disorders: No Genitourinary: No Immune Disorder: No Implanted Vascular Access Dvce: No Musculoskeletal: Yes Neurologic: No Psychiatric: No Reproductive: No Respiratory: Yes Thyroid Disease: No Past Surgical History Oral Surgery: Yes (Adenoids ) Other Surgery: Yes (adenoidectomy as a child) Social History Alcohol Use: Yes (few beers daily) Tobacco Use: Yes (1/3 PPD) Substance Use: No Allergies-Medications (Allergen,Severity, Reaction): Coded Allergies: Shellfish (Verified Allergy, Severe, 04/07/17) Reported Meds & Prescriptions Reported Meds & Active Scripts Active Alcohol Prep Pads (Alcohol Swabs) 70 % Pad 1 Pad .ROUTE DIRECTED Insulin Syringe/U-100/1Ml 28G X 1/2" 1 ml (Insulin Syringe/Needle U-100) 1 Mis Mis 1 Ea .ROUTE DIRECTED Lancets 1 Mis Mis 1 Ea .ROUTE DIRECTED Blood Glucose Test Strips Strips Strip 1 Ea .ROUTE DIRECTED Blood Glucose Monitoring W/Device (Device) 1 Kit Kit 1 Kit .ROUTE DIRECTED Novolog Inj (Insulin Aspart) 100 Unit/Ml Inj 1 Injection SQ ACHS SLIDING SCALE 30 Days Levemir Inj (Insulin Detemir) 1,000 unit/ 10 ML Vial 16 Units SQ HS 30 Days Review of Systems General / Constitutional: No: Fever Eyes: No: Visual changes HENT: No: Headaches Cardiovascular: No: Chest Pain or Discomfort Respiratory: No: Shortness of Breath Gastrointestinal: No: Abdominal Pain Genitourinary: No: Dysuria Musculoskeletal: No: Pain Skin: No Rash Neurologic: No: Weakness Psychiatric: No: Depression Endocrine: No: Polydipsia Hematologic/Lymphatic: No: Easy Bruising Physical Exam Narrative GENERAL: Well-nourished, well-developed patient. SKIN: Focused skin assessment warm/dry. HEAD: Normocephalic. EYES: No scleral icterus. No injection or drainage. NECK: Supple, trachea midline. No JVD or lymphadenopathy. CARDIOVASCULAR: Regular rate and rhythm without murmurs, gallops, or rubs. RESPIRATORY: Breath sounds equal bilaterally. No accessory muscle use. GASTROINTESTINAL: Abdomen soft, non-tender, nondistended. MUSCULOSKELETAL: No cyanosis, or edema. BACK: Nontender without obvious deformity. No CVA tenderness. Neurologic exam normal. Data Data Last Documented VS Vital Signs Date Time Temp Pulse Resp B/P Pulse Ox O2 Delivery O2 Flow Rate FiO2 04/07/17 12:54 98.4 107 16 150/79 98 Orders Complete Blood Count With Diff (04/07/17 13:15) Comprehensive Metabolic Panel (04/07/17 13:15) Urinalysis - C+S If Indicated (04/07/17 13:15) Beta Hydroxybutyrate (Acetone) (04/07/17 13:15) Iv Access Insert/Monitor (04/07/17 13:15) Ecg Monitoring (04/07/17 13:15) Oximetry (04/07/17 13:15) Drug Screen, Random Urine (04/07/17 13:15) Alcohol (Ethanol) (04/07/17 13:15) Psych Screen (04/07/17 13:15) Sodium Chlor 0.9% 1000 Ml Inj (Ns 1000 M (04/07/17 13:30) Vascular Access Team Consult/P PRN (04/07/17 14:21) Vascular Poc Ultrasound (04/07/17 ) [employer] / Telemetry ANIVAL.Q8H (04/07/17 15:02) ^ Insert Iv (04/07/17 15:02) Diet Npo (04/07/17 Dinner) Sodium Chlor 0.9% 1000 Ml Inj (Ns 1000 M (04/07/17 15:02) Dext 5%-Nacl 0.9% 1000 Ml Inj (D5w-Ns 10 (04/07/17 15:02) Insulin Human Regular Inj (Novolin R Inj (04/07/17 15:15) Insulin Regular (Iv Infusion) (Novolin R (04/07/17 15:15) Potassium Chlor 40 Meq Premix (Kcl 40 Me (04/07/17 15:15) Potassium Chlor 40 Meq Premix (Kcl 40 Me (04/07/17 15:15) Potassium Chlor 20 Meq Premix (Kcl 20 Me (04/07/17 15:15) Potassium Chlor 20 Meq Premix (Kcl 20 Me (04/07/17 15:15) Potassium Chlor 20 Meq Premix (Kcl 20 Me (04/07/17 15:15) Potassium Chlor 20 Meq Premix (Kcl 20 Me (04/07/17 15:15) Potassium Chlor 20 Meq Premix (Kcl 20 Me (04/07/17 15:15) Potassium Chlor 20 Meq Premix (Kcl 20 Me (04/07/17 15:15) Sodium Bicarbonate 8.4% Inj (Sodium Bica (04/07/17 15:15) Sodium Bicarbonate 8.4% Inj (Sodium Bica (04/07/17 15:15) Sodium Phosphate Inj (Sodium Phosphate I (04/07/17 15:15) Hemoglobin (Hgb) A1c (04/07/17 15:02) Basic Metabolic Panel (Bmp) (04/07/17 20:02) Basic Metabolic Panel (Bmp) (04/08/17 02:02) Basic Metabolic Panel (Bmp) (04/08/17 08:02) Basic Metabolic Panel (Bmp) (04/08/17 14:02) Magnesium (Mg) (04/07/17 20:02) Magnesium (Mg) (04/08/17 02:02) Magnesium (Mg) (04/08/17 08:02) Magnesium (Mg) (04/08/17 14:02) Phosphorus (Po4) (04/07/17 20:02) Phosphorus (Po4) (04/08/17 02:02) Phosphorus (Po4) (04/08/17 08:02) Phosphorus (Po4) (04/08/17 14:02) Beta Hydroxybutyrate (Acetone) (04/08/17 02:02) Beta Hydroxybutyrate (Acetone) (04/08/17 14:02) Labs Laboratory Tests Test 04/07/17 04/07/17 13:20 13:50 Urine Collection Type CLEAN CATCH Urine Color YELLOW Urine Turbidity CLEAR Urine pH 6.0 Urine Specific [place] GREATER THAN 1.035 Urine Protein NEG mg/dL Urine Glucose (UA) 1000 OR GREATER mg/dL Urine Ketones 40 mg/dL Urine Occult Blood NEG Urine Nitrite NEG Urine Bilirubin NEG Urine Leukocyte Esterase NEG Urine WBC 0-2 /hpf Urine Squamous Epithelial 0-5 /hpf Cells Microscopic Urinalysis Comment CULT NOT INDICATED Urine Opiates Screen NEG Urine Barbiturates Screen NEG Urine Amphetamines Screen POS Urine Benzodiazepines Screen NEG Urine Cocaine Screen NEG Urine Cannabinoids Screen NEG White Blood Count 8.4 TH/MM3 Red Blood Count 4.32 MIL/MM3 Hemoglobin 13.3 GM/DL Hematocrit 40.1 % Mean Corpuscular Volume 93.0 FL Mean Corpuscular Hemoglobin 30.8 PG Mean Corpuscular Hemoglobin 33.2 % Concent Red Cell Distribution Width 12.1 % Platelet Count 266 TH/MM3 Mean Platelet Volume 8.3 FL Neutrophils (%) (Auto) 67.8 % Lymphocytes (%) (Auto) 18.6 % Monocytes (%) (Auto) 11.4 % Eosinophils (%) (Auto) 1.2 % Basophils (%) (Auto) 1.0 % Neutrophils # (Auto) 5.6 TH/MM3 Lymphocytes # (Auto) 1.6 TH/MM3 Monocytes # (Auto) 1.0 TH/MM3 Eosinophils # (Auto) 0.1 TH/MM3 Basophils # (Auto) 0.1 TH/MM3 CBC Comment DIFF FINAL Differential Comment Sodium Level 135 MEQ/L Potassium Level 4.1 MEQ/L Chloride Level 100 MEQ/L Carbon Dioxide Level 19.1 MEQ/L Anion Gap 16 MEQ/L Blood Urea Nitrogen 13 MG/DL Creatinine 0.94 MG/DL Estimat Glomerular Filtration 88 ML/MIN Rate Random Glucose 563 MG/DL Calcium Level 8.5 MG/DL Total Bilirubin 0.8 MG/DL Aspartate Amino Transf 30 U/L (AST/SGOT) Alanine Aminotransferase 33 U/L (ALT/SGPT) Alkaline Phosphatase 100 U/L Total Protein 5.9 GM/DL Albumin 2.9 GM/DL Ethyl Alcohol Level LESS THAN 3 MG/DL MDM Medical Decision Making Medical Screen Exam Complete: Yes Emergency Medical Condition: Yes Interpretation(s) Arterial 50 9 PM. Bicarbonate 19.1. Anion gap 16. Glucose 563. Urine drug screen positive for amphetamine. UA is positive for glucose. Differential Diagnosis Differential diagnosis including hyperglycemia, DKA, suicidal, depression, adjustment disorder. Narrative Course 41-year-old male with history diabetes, noncompliant with insulin and feeling suicidal. Normal saline solution 1 L IV bolus. Diabetic protocol started. Procedures Procedure Narrative CENTRAL VENOUS LINE: The site was prepped with Betadine and sterilely draped. It was infiltrated with 1% lidocaine plain. The deep vein was cannulated using normal Seldinger technique. A triple lumen central line was placed in the right femoral vein site and secured with simple interrupted suture. The site was sterilely dressed. The patient tolerated the procedure well. Diagnosis Primary Impression: Diabetic ketoacidosis Qualified Code: E13.10 - Diabetic ketoacidosis without coma associated with type 2 diabetes mellitus Additional Impression: Suicidal ideation Admitting Information Admitting Physician Requests: Admit Royer Young MD Apr 07, 2017 13:23
[2017-04-07] MEDS ORDERED: SODIUM CHLOR 0.9% 1000 ML INJ 1,000 ML IV ONE (13:30)
[2017-04-07 13:37] LABS: BLOOD, URINE NEG (NEG); KETONE, URINE 40 mg/dL (NEG); NITRITE,URINE NEG (NEG)
[2017-04-07 13:41] LABS: GLUCOSE,URINE 1000 OR GREATER mg/dL (NEG)
[2017-04-07 13:42] LABS: METHOD OF COLLECTION CLEAN CATCH; URINE COLOR YELLOW (YELLW/STRAW)
[2017-04-07 13:43] LABS: COMMENT (UR) CULT NOT INDICATED; CULTURE IF INDICATED CULT NOT INDICATED; SQUAMOUS EPITHELIAL CELL URINE 0-5 /hpf (0-5); WBC, URINE 0-2 /hpf (0-5)
[2017-04-07 13:46] LABS: AMPHETAMINE, URINE POS (NEG); BARBITURATES, URINE NEG (NEG); COCAINE, URINE NEG (NEG)
[2017-04-07 13:58] LABS: AUTOMATED NEUTROPHIL # 5.6 TH/MM3 (1.8-7.7); BASOPHIL # 0.1 TH/MM3 (0-0.2); EOSINOPHIL # 0.1 TH/MM3 (0-0.4); EOSINOPHIL % 1.2 % (0.0-4.0); HEMATOCRIT 40.1 % (39.0-51.0); HEMO FLAGS DIFF FINAL; LYMPH % 18.6 % (9.0-44.0); LYMPHOCYTE # 1.6 TH/MM3 (1.0-4.8); MEAN CORPUSCULAR HEMOGLOBIN 30.8 PG (27.0-34.0); MEAN CORPUSCULAR HGB CONC 33.2 % (32.0-36.0); MONO % 11.4 % (0.0-8.0); NEUT % 67.8 % (16.0-70.0); PLATELET COUNT 266 TH/MM3 (150-450); RED BLOOD COUNT 4.32 MIL/MM3 (4.50-5.90); RED CELL DISTRIBUTION WIDTH 12.1 % (11.6-17.2); WHITE BLOOD COUNT 8.4 TH/MM3 (4.0-11.0)
[2017-04-07 14:24] LABS: ALKALINE PHOSPHATASE 100 U/L (45-117); ALT (GPT) 33 U/L (12-78); ANION GAP 16 MEQ/L (5-15); AST (GOT) 30 U/L (15-37); BICARBONATE 19.1 MEQ/L (21.0-32.0); BLOOD UREA NITROGEN 13 MG/DL (7-18); CHLORIDE 100 MEQ/L (98-107); GLOMERULAR FILTRATION RATE 88 ML/MIN (>89); POTASSIUM 4.1 MEQ/L (3.5-5.1); SODIUM (NA) 135 MEQ/L (136-145); TOTAL BILIRUBIN ADULT 0.8 MG/DL (0.2-1.0)
[2017-04-07 15:07] LABS: BETA-HYDROXYBUTYRATE 5.31 MMOL/L (0.00-0.39)
[2017-04-07] MEDS ORDERED: SODIUM CHLORIDE 0.9% FLUSH 10 ML FLUSH IV FLUSH PRN (15:15)
[2017-04-07] MEDS ORDERED: POTASSIUM CHLOR 20 MEQ PREMIX 100 ML IV PRN ×5 (15:15)
[2017-04-07] MEDS ORDERED: MAGNESIUM HYDROXIDE SUSP 30 ML CUP PO PRN (15:15)
[2017-04-07] MEDS ORDERED: SENNOSIDES 8.6 MG TAB PO PRN (15:15)
[2017-04-07] MEDS ORDERED: LACTULOSE SYRUP 20 GM/30 ML CUP PO PRN (15:15)
[2017-04-07] MEDS ORDERED: POTASSIUM CHLOR 40 MEQ PREMIX 100 ML IV PRN ×2 (15:15)
[2017-04-07] MEDS ORDERED: SODIUM BICARBONATE 8.4% SOLN 50 MEQ/50 ML VIAL IV PRN ×2 (15:15)
[2017-04-07] MEDS ORDERED: BISACODYL 10 MG SUPP RECTAL PRN (15:15)
[2017-04-07] MEDS ORDERED: INSULIN HUMAN REGULAR 1,000 UNITS/10 ML VIAL IV PUSH ONE (15:15)
[2017-04-07] MEDS ORDERED: INSULIN REGULAR (IV INFUSION) 100 UNITS in SODIUM CHLORIDE 0.9% INJ 99 ML IV SCH (15:15)
[2017-04-07] MEDS ORDERED: NALOXONE HCL 0.4 MG/ML AMP IV PRN (15:15)
[2017-04-07] MEDS ORDERED: SODIUM PHOSPHATE INJ 15 MMOL in SODIUM CHLORIDE 0.9% INJ 100 ML IV PRN (15:15)
[2017-04-07] MEDS: HEPARIN SODIUM - SQ 10,000 UNITS/ML VIAL SQ SCH (15:48)
[2017-04-07] MEDS: SODIUM CHLOR 0.9% 1000 ML INJ 1,000 ML IV SCH ×3 (16:26→23:02)
[2017-04-07] MEDS: POTASSIUM CHLOR 20 MEQ PREMIX 100 ML IV PRN ×4 (16:35→21:55)
[2017-04-07] MEDS ORDERED: CHLORHEXIDINE GLUCONATE 2 % 1 PACK (2 CLOTHS)(extra cloths) TOPICAL PRN (17:45)
--- NOTE | 2017-04-07 18:07 | HHI.HP ---
[facility] No Primary Care Physician Admission Diagnosis diabetic ketoacidosis. Suicidal. Diagnoses: Travel History International Travel<30 Days: No Contact w/Intl Traveler <30 Da: No Traveled to Known Affected Are: No History of Present Illness 41-year-old male with a history of diabetes on insulin, with recent admission 08/11 for DKA secondary to noncompliance. Patient had a breakup with his girlfriend, and his girlfriend documented a house that his diabetic supplies. On last admission he was prescribed insulin, as well as follow-up with primary care. Patient says since discharge he has been walking around without a place to stay. He says he has been taking his insulin, except for over the past day. He reports aches all over. Denies any fever or chills. Denies any nausea or vomiting. Denies any dysuria. Patient says he [facility] a homeless [facility]. Patient says he is suicidal over the past couple days, however has no specific plan. Review of Systems Performed and negative except for history of present illness and past medical history. Past Family Social History Past Medical History Diabetes Asthma Past Surgical History Tonsillectomy Reported Medications Reported Meds & Active Scripts Active Alcohol Prep Pads (Alcohol Swabs) 70 % Pad 1 Pad .ROUTE DIRECTED Insulin Syringe/U-100/1Ml 28G X 1/2" 1 ml (Insulin Syringe/Needle U-100) 1 Mis Mis 1 Ea .ROUTE DIRECTED Lancets 1 Mis Mis 1 Ea .ROUTE DIRECTED Blood Glucose Test Strips Strips Strip 1 Ea .ROUTE DIRECTED Blood Glucose Monitoring W/Device (Device) 1 Kit Kit 1 Kit .ROUTE DIRECTED Novolog Inj (Insulin Aspart) 100 Unit/Ml Inj 1 Injection SQ ACHS SLIDING SCALE 30 Days Levemir Inj (Insulin Detemir) 1,000 unit/ 10 ML Vial 16 Units SQ HS 30 Days Allergies: Coded Allergies: Shellfish (Verified Allergy, Severe, 04/07/17) Family History Father healthy. Mother with diabetes Social History Patient smokes one third pack a day cigarettes since 15 years old. Intake reports a few beers daily, however to me reports occasional alcohol use. Denies illicit drugs. Previous history of illicit drug use. Physical Exam Vital Signs Vital Signs Date Time Temp Pulse Resp B/P Pulse Ox O2 Delivery O2 Flow Rate FiO2 04/07/17 16:25 80 16 158/81 100 Room Air 04/07/17 15:33 16 100 Room Air 04/07/17 15:15 84 18 120/69 98 Room Air 04/07/17 12:54 98.4 107 16 150/79 98 Physical Exam GENERAL: This is a well-nourished, well-developed patient, appears fatigued. Borderline tachypnea. He is oriented 3. Flat affect. SKIN: No rashes, ecchymoses or lesions. Cool and dry. HEAD: Atraumatic. Normocephalic. No temporal or scalp tenderness. EYES: Pupils equal round and reactive. Extraocular motions intact. No scleral icterus. No injection or drainage. ENT: Nose without bleeding, purulent drainage or septal hematoma. Throat without erythema, tonsillar hypertrophy or exudate. Uvula midline. Airway patent. NECK: Trachea midline. No JVD or lymphadenopathy. Supple, nontender, no meningeal signs. CARDIOVASCULAR: Regular rate and rhythm without murmurs, gallops, or rubs. RESPIRATORY: Clear to auscultation. Breath sounds equal bilaterally. No wheezes , rales, or rhonchi. GASTROINTESTINAL: Abdomen soft, non-tender, nondistended. No hepato-splenomegaly , or palpable masses. No guarding. MUSCULOSKELETAL: Extremities without clubbing, cyanosis, or edema. No joint tenderness, effusion, or edema noted. No calf tenderness. Negative Homans sign bilaterally. NEUROLOGICAL: Awake and alert. Cranial nerves II through XII intact. Motor and sensory grossly within normal limits. Five out of 5 muscle strength in all muscle groups. Normal speech. Laboratory Laboratory Tests Test 04/07/17 04/07/17 13:20 13:50 Urine Collection Type CLEAN CATCH Urine Color YELLOW Urine Turbidity CLEAR Urine pH 6.0 Urine Specific [place] GREATER THAN 1.035 Urine Protein NEG Urine Glucose (UA) 1000 OR GREATER Urine Ketones 40 Urine Occult Blood NEG Urine Nitrite NEG Urine Bilirubin NEG Urine Leukocyte Esterase NEG Urine WBC 0-2 Urine Squamous Epithelial 0-5 Cells Microscopic Urinalysis Comment CULT NOT INDICATED Urine Opiates Screen NEG Urine Barbiturates Screen NEG Urine Amphetamines Screen POS Urine Benzodiazepines Screen NEG Urine Cocaine Screen NEG Urine Cannabinoids Screen NEG White Blood Count 8.4 Red Blood Count 4.32 Hemoglobin 13.3 Hematocrit 40.1 Mean Corpuscular Volume 93.0 Mean Corpuscular Hemoglobin 30.8 Mean Corpuscular Hemoglobin 33.2 Concent Red Cell Distribution Width 12.1 Platelet Count 266 Mean Platelet Volume 8.3 Neutrophils (%) (Auto) 67.8 Lymphocytes (%) (Auto) 18.6 Monocytes (%) (Auto) 11.4 Eosinophils (%) (Auto) 1.2 Basophils (%) (Auto) 1.0 Neutrophils # (Auto) 5.6 Lymphocytes # (Auto) 1.6 Monocytes # (Auto) 1.0 Eosinophils # (Auto) 0.1 Basophils # (Auto) 0.1 CBC Comment DIFF FINAL Differential Comment Sodium Level 135 Potassium Level 4.1 Chloride Level 100 Carbon Dioxide Level 19.1 Anion Gap 16 Blood Urea Nitrogen 13 Creatinine 0.94 Estimat Glomerular Filtration 88 Rate Random Glucose 563 Calcium Level 8.5 Total Bilirubin 0.8 Aspartate Amino Transf 30 (AST/SGOT) Alanine Aminotransferase 33 (ALT/SGPT) Alkaline Phosphatase 100 Total Protein 5.9 Albumin 2.9 Ethyl Alcohol Level LESS THAN 3 B-Hydroxybutyrate 5.31 Result Diagram: 04/07/17 1350 04/07/17 1350 Assessment and Plan Assessment and Plan //Diabetic ketoacidosis and insulin-dependent diabetic patient -Gap 16, ketones on urinalysis. -Secondary to noncompliance, adjustment disorder disorder/depression -Insulin drip, ICU admission for DKA protocol. cont monitoring //Suicidal ideation //Adjustment disorder Secondary to recent breakup. -Patient has no specific suicide plan, however with his degree of diabetes, he does not need a plan, just willful/apathetic noncompliance with diabetic regimen. -Sitter. Psychiatry consultation. //DVT prophylaxis. SCDs. Discussed Condition With Patient, nurse, ED physician. Physician Certification 2 Midnight Certification Type: Admission for Inpatient Services Order for Inpatient Services The services are ordered in accordance with Medicare regulations or non- Medicare payer requirements, as applicable. In the case of services not specified as inpatient-only, they are appropriately provided as inpatient services in accordance with the 2-midnight benchmark. Estimated LOS (days): 3 days is the estimated time the patient will need to remain in the hospital, assuming treatment plan goals are met and no additional complications. Post-Hospital Plan: Not yet determined Marcellus Florian MD Apr 07, 2017 18:07
[2017-04-07] MEDS ORDERED: SODIUM BICARBONATE 8.4% INJ 50 MEQ/50 ML SYR ONE (18:31)
[2017-04-07] MEDS: DEXT 5%-NACL 0.9% 1000 ML INJ 1,000 ML IV SCH ×2 (19:00→20:02)
[2017-04-07] MEDS: DEXT 5%-NACL 0.45% 1000 ML INJ 1,000 ML IV SCH ×2 (20:34→23:00)
[2017-04-07 20:36] LABS: ANION GAP 8 MEQ/L (5-15); BLOOD UREA NITROGEN 9 MG/DL (7-18); CHLORIDE 109 MEQ/L (98-107); GLOMERULAR FILTRATION RATE 119 ML/MIN (>89); MAGNESIUM 1.9 MG/DL (1.5-2.5); POTASSIUM 3.7 MEQ/L (3.5-5.1); SODIUM (NA) 144 MEQ/L (136-145)
[2017-04-07] MEDS: SODIUM CHLORIDE 0.9% FLUSH 10 ML FLUSH IV FLUSH SCH (20:54)
[2017-04-07] MEDS ORDERED: INSULIN DETEMIR 100 UNITS/ML VIAL SQ ONE (21:00)
[2017-04-07 22:09] LABS: HEMOGLOBIN A1a 0.9 %; HEMOGLOBIN A1b 0.9 %; HEMOGLOBIN F 1.9 %; HEMOGLOBIN LA1C 2.8 %; HEMOGLOBIN P3 5.4 %
[2017-04-08] VITALS (13 sets, daily range): BP systolic 104–138; BP diastolic 60–78; PULSE 68–84; RESP 12–24; TEMP 98–98.7; O2SAT 96–98
[2017-04-08] MEDS: DEXT 5%-NACL 0.9% 1000 ML INJ 1,000 ML IV SCH (01:02)
[2017-04-08 01:38] LABS: POTASSIUM 4.1 MEQ/L (3.5-5.1)
[2017-04-08 01:47] LABS: BETA-HYDROXYBUTYRATE 2.43 MMOL/L (0.00-0.39); BICARBONATE 24.4 MEQ/L (21.0-32.0); MAGNESIUM 1.9 MG/DL (1.5-2.5)
[2017-04-08] MEDS ORDERED: DEXTROSE 50% IN WATER 50 ML VIAL(D50) IV PRN (02:45)
[2017-04-08] MEDS ORDERED: GLUCAGON 1 MG/ML VIAL OTHER PRN (02:45)
[2017-04-08] MEDS: CHLORHEXIDINE GLUCONATE 2 % 1 PACK (2 CLOTHS)(taper/protocol) TOPICAL SCH (02:48)
[2017-04-08] MEDS: HEPARIN SODIUM - SQ 10,000 UNITS/ML VIAL SQ SCH ×2 (04:53→16:29)
[2017-04-08 08:45] LABS: POTASSIUM 4.2 MEQ/L (3.5-5.1)
[2017-04-08 08:48] LABS: BICARBONATE 25.5 MEQ/L (21.0-32.0); MAGNESIUM 1.9 MG/DL (1.5-2.5)
[2017-04-08] MEDS: INSULIN ASPART SUPPLEMENTAL SCALE SQ SCH ×4 (09:38→21:00)
[2017-04-08] MEDS: SODIUM CHLORIDE 0.9% FLUSH 10 ML FLUSH IV FLUSH SCH ×2 (09:46→21:00)
[2017-04-08] MEDS ORDERED: PNEUMOCOCCAL POLYVALENT INJ 25 MCG/0.5 ML SYR IM ONE (10:00)
--- NOTE | 2017-04-08 15:04 | HHI.PR ---
Subjective Remarks Patient says he is feeling better. Muscle pain all over improved. Denies any chest pain or shortness of breath. Objective Vital Signs Date Time Temp Pulse Resp B/P Pulse Ox O2 Delivery O2 Flow Rate FiO2 04/08/17 12:00 98.2 72 15 132/77 04/08/17 10:00 84 23 138/78 04/08/17 08:00 98.3 70 14 124/71 04/08/17 07:15 81 04/08/17 06:00 76 16 125/69 04/08/17 04:00 98.0 74 12 104/60 98 04/08/17 02:00 76 14 118/71 04/08/17 00:00 98.6 78 24 113/70 96 04/07/17 23:00 81 04/07/17 22:00 80 19 119/62 04/07/17 20:00 80 15 04/07/17 19:18 98.4 88 20 141/82 96 04/07/17 18:00 92 04/07/17 17:05 98.4 84 16 138/77 98 04/07/17 16:25 80 16 158/81 100 Room Air 04/07/17 15:33 16 100 Room Air 04/07/17 15:15 84 18 120/69 98 Room Air I/O 04/07/17 04/07/17 04/07/17 04/08/17 04/08/17 04/08/17 07:00 15:00 23:00 07:00 15:00 23:00 Intake Total 3800 ml 200 ml Output Total 850 ml Balance 2950 ml 200 ml Intake Oral 300 ml 200 ml IV Total 3500 ml Output Urine Total 850 ml # Voids 2 0 # Bowel Movements 0 0 Result Diagram: 04/07/17 1350 04/08/17 0805 Objective Remarks GENERAL: Patient sitting up in bed. Appears comfortable.. Alert and oriented 3. Flat affect however. SKIN: Warm and dry. HEAD: Normocephalic. EYES: No scleral icterus. No injection or drainage. NECK: Supple, trachea midline. No JVD. CARDIOVASCULAR: Regular rate and rhythm without murmurs, gallops, or rubs. RESPIRATORY: Breath sounds equal bilaterally. No accessory muscle use. GASTROINTESTINAL: Abdomen soft, non-tender, nondistended. MUSCULOSKELETAL: No cyanosis, or edema. BACK: Nontender without obvious deformity. No CVA tenderness. A/P Assessment and Plan //Diabetic ketoacidosis and insulin-dependent diabetic patient -Gap 16, ketones on urinalysis. -Secondary to noncompliance, adjustment disorder disorder/depression -Gap closed. Subcutaneous Levemir, siding scale. Tolerating diabetic diet. Continue to monitor. Discussed with case filler. Working on getting patient meds to go home again //Amphetamine positive on urine drug screen. -Cessation counseling provided. Recommend discontinue use. Likely cause of hyperglycemia. //Suicidal ideation //Adjustment disorder Secondary to recent breakup. -Patient has no specific suicide plan, however with his degree of diabetes, he does not need a plan, just willful/apathetic noncompliance with diabetic regimen. -Sitter. Awaiting Psychiatry consultation. //DVT prophylaxis. SCDs. Discharge Planning client solutions manager working on getting patient medications go home. Patient homeless Suicidal ideation. Awaiting psychiatry evaluation. Marcellus Florian MD Apr 08, 2017 15:04
[2017-04-08 16:11] LABS: POTASSIUM 4.2 MEQ/L (3.5-5.1)
[2017-04-08 16:15] LABS: BICARBONATE 27.2 MEQ/L (21.0-32.0)
[2017-04-08 16:31] LABS: BETA-HYDROXYBUTYRATE 0.15 MMOL/L (0.00-0.39)
[2017-04-08] MEDS ORDERED: INSULIN DETEMIR 100 UNITS/ML VIAL SQ ONE ×2 (16:45)
[2017-04-08] MEDS ORDERED: DEXT 5%-NACL 0.45% 1000 ML INJ 1,000 ML IV ONE (16:45)
[2017-04-08] MEDS ORDERED: INSULIN DETEMIR 100 UNITS/ML VIAL SQ SCH (21:00)
[2017-04-09] VITALS: BP 123/73; PULSE 74; PULSE 76; RESP 24; TEMP 98.1; O2SAT 96
[2017-04-09] MEDS: HEPARIN SODIUM - SQ 10,000 UNITS/ML VIAL SQ SCH (03:27)
[2017-04-09] MEDS: CHLORHEXIDINE GLUCONATE 2 % 1 PACK (2 CLOTHS)(taper/protocol) TOPICAL SCH (03:28)
[2017-04-09 04:00] VITALS: BP 118/74; PULSE 68; RESP 24; TEMP 98; O2SAT 96
[2017-04-09 04:58] LABS: POTASSIUM 3.7 MEQ/L (3.5-5.1)
[2017-04-09 05:01] LABS: BICARBONATE 29.7 MEQ/L (21.0-32.0); MAGNESIUM 1.6 MG/DL (1.5-2.5)
--- NOTE | 2017-04-09 07:02 | PD.CONS ---
Provisional Diagnosis Admission Date Apr 07, 2017 at 15:42 [place] I. 1. Adjustment disorder with disturbance of emotions and conduct Rule out depressive diathesis or drug-induced mood d/o 2. Polysubstance abuse [place] II. Deferred [place] V. GAF is unclear at present History of Present Illness Service Psychiatry Consult Requested By Dr. Florian Reason for Consult Suicidal ideation. (I was notified of this consult on 04/09/17@0608am. Consult originally assigned to different psychiatrist.) Primary Care Physician No Primary Care Physician HPI Mr. Stark is a 41-year-old male with no reported psychiatric history who presented initially on 04/07 in diabetic ketoacidosis. He has been admitted to the intensive care unit at the [facility]. Psychiatry is consulted because the patient articulated suicidal ideation to Dr. Florian. Reviewing the electronic medical record, I see no prior psychiatric contact within our system. Patient seen and examined. Chart reviewed. Case discussed with Dr. Florian and nurse. Sitter at bedside. On my examination today, the patient says that he has been struggling with a lot of psychosocial stressors including recent loss of job, girlfriend's infidelity and loss of housing. He says that he recognizes he has a substance use issue and was trying to get into a sober living facility but was not able to produce a clean urine toxicology. Patient admits to a self-care deficit and notes that he has not been taking his insulin as he ought to. He does admit that he was contemplating self-harm earlier and is presently somewhat ambivalent about suicidal ideation. He says that he feels hopeless and has nothing to live for. Mood is described as "blah." He is withdrawn and anhedonic. Sleep and appetite are fair. No hypomanic or manic symptoms. Denies audiovisual hallucinations and I can elicit no delusional beliefs. The remainder of psychiatric ROS is negative. Past psychiatric history: The patient denies a history of psychiatric diagnosis. He denies a history of inpatient or outpatient psychiatric treatment. He denies a history of suicide attempts. Family history: The patient denies a family history of serious mental illness, substance use disorder or suicide. Chemical dependency history: The patient reports that he abuses methamphetamines a few times a week. He reports that his alcohol consumption has been somewhat curtailed of late and he drinks perhaps 2-4 beers daily. His longest sober time is on the order of days. He does endorse a history of blackouts but denies history of DTs, seizures or DUIs. No other substance use reported. Social history: Patient denies any history of physical, verbal or sexual abuse. He says that he had been living with his girlfriend of several years but she was unfaithful and the 2 have broken up and this has rendered him homeless about a week ago. He has a 10th grade education. He has no income. 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 He is single with no children. Denies any history. Denies any current legal issues. The patient does have a history of drug crime but denies any history of violent crime. Denies any access to guns or firearms. He is a [employer]. Review of Systems Except as stated in HPI: all other systems reviewed are Neg Past Family Social History Coded Allergies: Shellfish (Verified Allergy, Severe, 04/07/17) Past Medical History See EMR. Includes DM and asthma. Active Scripts Alcohol Swabs (Alcohol Prep Pads)70 % Pad #1 PAD .ROUTE DIRECTED Ref 0 Prov:Marcellus Florian MD 04/05/17 Insulin Syringe/Needle U-100 (Insulin Syringe/U-100/1Ml 28G X 1/2" 1 ml)1 Mis Mis #1 Ea .route As Directed Prov:Marcellus Florian MD 04/05/17 Lancets 1 Mis Mis #1 EA .ROUTE DIRECTED Ref 0 Prov:Marcellus Florian MD 04/05/17 Blood Glucose Test Strips Strips Strip #1 EA .ROUTE DIRECTED Ref 0 Prov:Marcellus Florian MD 04/05/17 Blood Glucose Monitoring W/Device 1 Kit Kit #1 KIT .ROUTE DIRECTED Ref 0 Prov:Marcellus Florian MD 04/05/17 Insulin Aspart Inj (Novolog Inj)100 Unit/Ml Inj1 Injection SQ ACHS SLIDING SCALE 30 Days Prov:Marcellus Florian MD 04/05/17 Insulin Detemir Inj (Levemir Inj)1,000 unit/ 10 ML Vial16 Units SQ HS 30 Days Prov:Marcellus Florian MD 04/05/17 Discontinued Reported Medications Insulin Aspart Protam-Asp 70-30 Inj (Novolog Mix 70-30 Inj)1,000 Unit/10 Ml Vial30 Units SQ DAILY #10 ML Ref 0 03/09/17 Insulin Aspart Protam-Asp 70-30 Inj (Novolog Mix 70-30 Inj)1,000 Unit/10 Ml Vial40 Units SQ HS #10 ML Ref 0 03/09/17 Discontinued Scripts Prednisone 50 Mg Tab50 Mg PO BID #12 TAB Ref 0 Prov:Matt Kowalski MD 03/09/17 Albuterol 6.7 GM Inh (Proventil Hfa 6.7 GM Inh)90 Mcg/Act Aer2 Puff INH Q4-6H PRN (SHORTNESS OF BREATH) #1 INHALER Ref 0 Prov:Matt Kowalski MD 03/09/17 Ciprofloxacin (Cipro)500 Mg Gdy307 Mg PO BID #20 TAB Ref 0 Prov:Juan Benton MD 02/06/17 Current Medications Medications (Trade) Dose Ordered Sig/Kady Route Start Time Stop Time Status Last Admin (Sodium Bicarbonate 8.4% Inj) 100 meq UNSCH PRN IV 04/07/17 15:15 04/07/17 18:35 (Sodium Bicarbonate 8.4% Inj) 50 meq UNSCH PRN IV 04/07/17 15:15 (NS Flush) 2 ml UNSCH PRN IV FLUSH 04/07/17 15:15 (NS Flush) 2 ml BID IV FLUSH 04/07/17 21:00 04/08/17 09:46 (Heparin Inj) 5,000 units Q12H SQ 04/07/17 16:00 04/09/17 03:27 (Narcan Inj) 0.4 mg UNSCH PRN IV 04/07/17 15:15 (Milk Of Magnesia Liq) 30 ml Q12H PRN PO 04/07/17 15:15 (Senokot) 17.2 mg Q12H PRN PO 04/07/17 15:15 (Dulcolax Supp) 10 mg DAILY PRN RECTAL 04/07/17 15:15 (Lactulose Liq) 30 ml DAILY PRN PO 04/07/17 15:15 Miscellaneous Information Patient in critical care unit? Ass... Q361D .XX 04/07/17 17:45 04/07/17 20:00 (Chlorhexidine 2% Cloth) 3 pack DAILY@04 TOPICAL 04/08/17 04:00 04/12/17 04:01 04/09/17 03:28 (Chlorhexidine 2% Cloth) 3 pack UNSCH PRN TOPICAL 04/07/17 17:45 04/12/17 17:32 (D50w (Vial) Inj) 50 ml UNSCH PRN IV 04/08/17 02:45 (Glucagon Inj) 1 mg UNSCH PRN OTHER 04/08/17 02:45 (Levemir Inj) 14 units HS SQ 04/09/17 21:00 Family History See above Social History See above Patient's Strengths (min. 2) In a monitored setting. Verbally fluent. Physical Exam Physical exam completed by primary team. On my examination today, the patient appears to be in no acute physical distress. No abnormal motor movements noted. No signs of withdrawal noted. Laboratories and vital signs reviewed: Vital Signs Vital Signs Date Time Temp Pulse Resp B/P Pulse Ox O2 Delivery O2 Flow Rate FiO2 04/09/17 04:00 98.0 68 24 118/74 96 04/07/17 16:25 Room Air I/O 04/08/17 04/08/17 04/09/17 08:00 16:00 00:00 Intake Total 200 ml 460 ml 1020 ml Output Total 730 ml 1100 ml Balance 200 ml -270 ml -80 ml Lab Results Item Value Date Time White Blood Count 8.4 TH/MM3 04/07/17 1350 Hemoglobin 13.3 GM/DL 04/07/17 135 Platelet Count 266 TH/MM3 04/07/17 1350 Sodium Level 141 MEQ/L 04/09/17 0419 Potassium Level 3.7 MEQ/L 04/09/17 0419 Chloride Level 105 MEQ/L 04/09/17 0419 Carbon Dioxide Level 29.7 MEQ/L 04/09/17 0419 Blood Urea Nitrogen 7 MG/DL 04/09/17 0419 Anion Gap 6 MEQ/L 04/09/17 0419 Creatinine 0.65 MG/DL 04/09/17 0419 Estimat Glomerular Filtration Rate 134 ML/MIN 04/09/17 0419 Hemoglobin A1c 12.3 % H 04/07/17 1942 Aspartate Amino Transf (AST/SGOT) 30 U/L 04/07/17 1350 Alanine Aminotransferase (ALT/SGPT) 33 U/L 04/07/17 1350 Alkaline Phosphatase 100 U/L 04/07/17 1350 Urine Amphetamines Screen POS H 04/07/17 1320 Ethyl Alcohol Level LESS THAN 3 MG/DL 04/07/17 1350 Mental Status Examination Patient is in hospital gown. He is fairly well groomed. He is awake and alert and oriented to person, Hospital and approximate date. No evidence of any delirium. No motor abnormalities noted. Speech is somewhat slow with increased speech latency. Language and fund of knowledge seem average. Focus and concentration fairly intact. Memory grossly intact on clinical exam. Mood is depressed. Affect restricted. Thought process linear. No loosening of associations. No evident delusions. Denies audiovisual hallucinations. Somewhat ambivalent about ongoing suicidal ideation. No homicidal ideation. Insight and judgment are poor. Assessment & Plan Problem List: (1) Adjustment disorder ICD Code: F43.20 (2) Polysubstance abuse ICD Code: F19.10 Assessment & Plan This is a 41-year-old male with psychiatric history as detailed above who is presently admitted to the medical unit for management of DKA. Psychiatry is consulted out of concern for suicidal ideation. Patient describes some depressive symptomatology as detailed above, although I suspect that this is likely largely reactive to his multiple psychosocial stressors. I do think that it would be prudent at this juncture because he remains ambivalent about ongoing thoughts of self-harm to admit the patient to the inpatient psychiatric unit for observation once he is medically cleared. I have initiated a Caro act. I would keep a sitter at the bedside for safety. The patient may be transferred to inpatient psychiatry once he is medically cleared, or to [facility] psych once he meets criteria for admission there if a bed is available. Defer psychotropic medications if indicated to the inpatient psychiatric team. Case discussed with Dr. Florian and RN. Thank you very much for this consultation. Discharge Planning Placed under BA. Request HC Surrog/Guard Advoc?: No Problem Qualifiers (1) Adjustment disorder: Qualified Code: F43.25 - Adjustment disorder with mixed disturbance of emotions and conduct Cesario Olivares MD Apr 09, 2017 07:02
[2017-04-09 07:15] VITALS: BP 134/75; PULSE 72; RESP 17; TEMP 97.7
[2017-04-09 08:00] VITALS: PULSE 75
[2017-04-09] MEDS: INSULIN ASPART SUPPLEMENTAL SCALE SQ SCH ×2 (08:10→12:39)
[2017-04-09] MEDS: SODIUM CHLORIDE 0.9% FLUSH 10 ML FLUSH IV FLUSH SCH (09:00)
--- NOTE | 2017-04-09 11:11 | HHI.DCPOC ---
Discharge Care Plan Diagnosis: (1) Suicidal ideation (2) DKA (diabetic ketoacidoses) Goals to Promote Your Health * To prevent worsening of your condition and complications * To maintain your health at the optimal level Directions to Meet Your Goals Take your medications as prescribed Follow your dietary instruction Follow activity as directed Keep your appointments as scheduled Take your immunizations and boosters as scheduled If your symptoms worsen call your PCP, if no PCP go to Urgent Care Center or Emergency Room Smoking is Dangerous to Your Health. Avoid second hand smoke Call the 24-hour hour crisis hotline for domestic abuse at Margo Rey MD Apr 09, 2017 11:11
[2017-04-09 11:15] VITALS: BP 121/65; PULSE 68; RESP 10
--- NOTE | 2017-04-09 11:15 | HHI.DS ---
Discharge Summary Admission Date Apr 07, 2017 at 15:42 Discharge Date: Apr 09, 2017 Admitting Diagnosis diabetic ketoacidosis. Suicidal. (1) DKA (diabetic ketoacidoses) ICD Code: E13.10 (2) Suicidal ideation ICD Code: R45.851 Procedures none Brief History - From Admission 41-year-old male with a history of diabetes on insulin, with recent admission 08/11 for DKA secondary to noncompliance. Patient had a breakup with his girlfriend, and his girlfriend documented a house that his diabetic supplies. On last admission he was prescribed insulin, as well as follow-up with primary care. Patient says since discharge he has been walking around without a place to stay. He says he has been taking his insulin, except for over the past day. He reports aches all over. Denies any fever or chills. Denies any nausea or vomiting. Denies any dysuria. Patient says he was rejected from a homeless half-way. Patient says he is suicidal over the past couple days, however has no specific plan. CBC/BMP: 04/07/17 1350 04/09/17 0419 Significant Findings Laboratory Tests Test 04/07/17 04/07/17 04/07/17 04/08/17 13:20 13:50 19:42 01:25 Urine Specific [place] GREATER THAN 1.035 (1.002-1.035) Urine Glucose (UA) 1000 OR GREATER mg/dL (NEG) Urine Ketones 40 mg/dL (NEG) Urine Amphetamines Screen POS (NEG) Red Blood Count 4.32 MIL/MM3 (4.50-5.90) Monocytes (%) (Auto) 11.4 % (0.0-8.0) Monocytes # (Auto) 1.0 TH/MM3 (0-0.9) Sodium Level 135 MEQ/L (136-145) Carbon Dioxide Level 19.1 MEQ/L (21.0-32.0) Anion Gap 16 MEQ/L (5-15) Estimat Glomerular Filtration 88 ML/MIN (>89) Rate Random Glucose 563 MG/DL 129 MG/DL 232 MG/DL (74-106) (74-106) (74-106) Total Protein 5.9 GM/DL (6.4-8.2) Albumin 2.9 GM/DL (3.4-5.0) B-Hydroxybutyrate 5.31 MMOL/L 2.43 MMOL/L (0.00-0.39) (0.00-0.39) Chloride Level 109 MEQ/L (98-107) Hemoglobin A1c 12.3 % (4.3-6.0) Calcium Level 7.6 MG/DL 7.8 MG/DL (8.5-10.1) (8.5-10.1) Phosphorus Level 1.7 MG/DL (2.5-4.9) Test 04/08/17 04/08/17 04/09/17 08:05 15:50 04:19 Random Glucose 244 MG/DL 228 MG/DL 199 MG/DL (74-106) (74-106) (74-106) Calcium Level 7.8 MG/DL 8.1 MG/DL 7.8 MG/DL (8.5-10.1) (8.5-10.1) (8.5-10.1) Phosphorus Level 2.3 MG/DL (2.5-4.9) Albumin 2.4 GM/DL (3.4-5.0) PE at Discharge GENERAL: This is a well-nourished, well-developed patient, in no apparent distress. CARDIOVASCULAR: Regular rate and rhythm without murmurs, gallops, or rubs. RESPIRATORY: Clear to auscultation. Breath sounds equal bilaterally. No wheezes , rales, or rhonchi. GASTROINTESTINAL: Abdomen soft, non-tender, nondistended. Normal active bowel sounds MUSCULOSKELETAL: Extremities without clubbing, cyanosis, or edema. NEURO: Alert & Oriented x4 to person, place, time, situation. Moves all ext x4 Pt update on day of discharge Patient is seen today in follow-up for diabetic ketoacidosis. This is resolved. Patient seen by psychiatry. Discharge plans to psych facility discussed with patient and GANG SUPERVISOR. Sitter in room Hospital Course Patient is a 41-year-old gentleman with a known history of type 1 diabetes was admitted with DKA and admitted psychiatric ideation. Patient was treated medically for DKA and this resolved with appropriate medical care. No evidence of infection was noted. Patient education was provided regarding care of type 1 diabetes. He was also seen by psychiatry due to his suicidal ideation. Patient has a Caro acted and recommended for psychiatric inpatient care. Pt Condition on Discharge: Good Discharge Disposition: Disc to Psych Care Fac Discharge Time: > 30 minutes Discharge Instructions DIET: Follow Instructions for: Diabetic Diet Activities you can perform: Regular-No Restrictions Continued Medications: Insulin Aspart Inj (Novolog Inj) 100 Unit/Ml Inj 1 INJECTION SQ ACHS SLIDING SCALE Blood Sugar Management Days 30 INJECTION Insulin Detemir Inj (Levemir Inj) 1,000 unit/ 10 ML Vial 16 UNITS SQ HS Blood Sugar Management Days 30 INJECTION Margo Rey MD Apr 09, 2017 11:15
[2017-04-09 12:05] VITALS: BP 121/65; PULSE 68; RESP 10; TEMP 97.8
[2017-04-09] MEDS ORDERED: INSULIN DETEMIR 100 UNITS/ML VIAL SQ SCH (21:00)
== END 2017-04-09 13:15 | DRG 638 ==
LOC: PHED 12:48 → PHEDA 15:42 → PHICU 17:05
PROVIDERS: ADMIT Hospitalist; ATTEND Hospitalist
PROC: 06HM33Z Insertion of Infusion Device into Right Femoral Vein, Percutaneous Approach (ICD-10-PCS; principal; 2017-04-07)
DX: E13.10 Other specified diabetes mellitus with ketoacidosis without coma (principal); R45.851 Suicidal ideations; Z79.4 Long term (current) use of insulin; F43.25 Adjustment disorder with mixed disturbance of emotions and conduct; Z91.19 Patient's noncompliance with other medical treatment and regimen; F17.210 Nicotine dependence, cigarettes, uncomplicated; Z23 Encounter for immunization
CPT/HCPCS: 36556; 80048; 80053; 80069; 80307; 81001; 82010; 82948; 83036; 83735; 84100; 85025; 87641; 90732; 96361; 96374; J1644; J1815; J1817; J3480; J7030

== ENCOUNTER 2017-04-09 14:12 | Inpatient (IN) | payer OTHER ==
[2017-04-09] MEDS ORDERED: ALUMINUM/MAGNESIUM/SIMETH 30 ML CUP PO PRN (14:30)
[2017-04-09] MEDS ORDERED: ACETAMINOPHEN 325 MG TAB PO PRN (14:30)
[2017-04-09] MEDS ORDERED: LORazepam 2 MG/ML VIAL IV PUSH PRN ×4 (14:30)
[2017-04-09] MEDS ORDERED: BENZTROPINE MESYLATE 2 MG/2 ML VIAL IM PRN (14:30)
[2017-04-09] MEDS ORDERED: hydrOXYzine HCL 50 MG TAB PO PRN (14:30)
[2017-04-09] MEDS ORDERED: BENZTROPINE MESYLATE 1 MG TAB PO PRN (14:30)
[2017-04-09] MEDS ORDERED: LORazepam 2 MG TAB PO PRN (14:30)
[2017-04-09] MEDS ORDERED: FLUMAZENIL 0.5 MG/5 ML VIAL IV PUSH PRN (14:30)
[2017-04-09] MEDS ORDERED: MAGNESIUM HYDROXIDE SUSP 30 ML CUP PO PRN (14:30)
[2017-04-09] MEDS ORDERED: LORazepam 1 MG TAB PO PRN (14:30)
[2017-04-09] MEDS ORDERED: DEXTROSE 50% IN WATER 50 ML VIAL(D50) IV PRN (14:45)
[2017-04-09] MEDS ORDERED: GLUCAGON 1 MG/ML VIAL OTHER PRN (14:45)
[2017-04-09 16:05] VITALS: BP 136/71; PULSE 84; TEMP 98.4; O2SAT 99
[2017-04-09] MEDS: INSULIN ASPART SUPPLEMENTAL SCALE SQ SCH ×2 (16:54→21:00)
--- NOTE | 2017-04-09 17:10 | PD.CONS ---
[facility] Consult Requested By Elise Reason for Consult Medical management Primary Care Physician No Primary Care Physician Diagnoses: History of Present Illness 41 y/o male with a history of DM, asthma, and depression presented to the hospital because he was feeling down and out. Thoughts of hurting himself but did not have a plan. [facility] was consulted for medical management of chronic medical conditions. He denies any chest pain, sob, fever or chills. He states he goes to the health department for his medications and he is compliant with his insulin at home, and uses an inhaler as needed. He does complain of blisters on bilateral heals from walking, he says it is painful to walk. He thinks the shoes he wears are not good. Review of Systems Constitutional: DENIES: Fever, Chills Respiratory: DENIES: Cough, Shortness of breath Cardiovascular: DENIES: Chest pain, Lower Extremity Edema Gastrointestinal: DENIES: Nausea, Vomiting Genitourinary: DENIES: Hematuria, Dysuria Musculoskeletal: DENIES: Back pain, Neck pain Integumentary: DENIES: Rash Neurologic: DENIES: Headache, Localized weakness Psychiatric: COMPLAINS OF: Depression, Suicidal Ideation Past Family Social History Allergies: Coded Allergies: Shellfish (Verified Allergy, Severe, 04/07/17) Past Medical History DM Asthma Depression Past Surgical History Tonsillectomy Reported Medications Reported Meds & Active Scripts Active Alcohol Prep Pads (Alcohol Swabs) 70 % Pad 1 Pad .ROUTE DIRECTED Insulin Syringe/U-100/1Ml 28G X 1/2" 1 ml (Insulin Syringe/Needle U-100) 1 Mis Mis 1 Ea .ROUTE DIRECTED Lancets 1 Mis Mis 1 Ea .ROUTE DIRECTED Blood Glucose Test Strips Strips Strip 1 Ea .ROUTE DIRECTED Blood Glucose Monitoring W/Device (Device) 1 Kit Kit 1 Kit .ROUTE DIRECTED Novolog Inj (Insulin Aspart) 100 Unit/Ml Inj 1 Injection SQ ACHS SLIDING SCALE 30 Days Levemir Inj (Insulin Detemir) 1,000 unit/ 10 ML Vial 16 Units SQ HS 30 Days Active Ordered Medications Current Medications Medications (Trade) Dose Ordered Sig/Kady Route Start Time Stop Time Status Last Admin (Benadryl) 50 mg HS PRN PO 04/09/17 14:30 (Tylenol) 650 mg Q4H PRN PO 04/09/17 14:30 (Milk Of Magnesia Liq) 30 ml DAILY PRN PO 04/09/17 14:30 (Mag-Al Plus Susp Liq) 30 ml Q6H PRN PO 04/09/17 14:30 (Habitrol 21 Mg Patch.24 Hr) 1 patch DAILY T-DERMAL 04/10/17 09:00 (Atarax) 50 mg Q6H PRN PO 04/09/17 14:30 (Cogentin) 1 mg Q12H PRN PO 04/09/17 14:30 (Cogentin Inj) 1 mg Q12H PRN IM 04/09/17 14:30 (Romazicon Inj) 0.2 mg Q1M PRN IV PUSH 04/09/17 14:30 (Ativan) 1 mg Q4H PRN PO 04/09/17 14:30 (Ativan Inj) 1 mg Q4H PRN IV PUSH 04/09/17 14:30 (Ativan) 2 mg Q2H PRN PO 04/09/17 14:30 (Ativan Inj) 2 mg Q2H PRN IV PUSH 04/09/17 14:30 (Ativan Inj) 2 mg Q1H PRN IV PUSH 04/09/17 14:30 (Ativan Inj) 2 mg Q15M PRN IV PUSH 04/09/17 14:30 Miscellaneous Information 1 DAILY T-DERMAL 04/10/17 09:00 (Levemir Inj) 16 units HS SQ 04/09/17 21:00 (D50w (Vial) Inj) 50 ml UNSCH PRN IV 04/09/17 14:45 (Glucagon Inj) 1 mg UNSCH PRN OTHER 04/09/17 14:45 (Vitamin B1) 100 mg DAILY PO 04/10/17 09:00 (Folate) 1 mg DAILY PO 04/10/17 09:00 Family History Mom: Breast CA Social History Tobacco use: 1/3 PPD Alcohol use: 2-3 beers a day Illicit drug use: denies Physical Exam Vital Signs Vital Signs Date Time Temp Pulse Resp B/P Pulse Ox O2 Delivery O2 Flow Rate FiO2 04/09/17 16:05 98.4 84 136/71 99 Physical Exam GENERAL: This is a well-nourished, well-developed patient, in no apparent distress. SKIN: No rashes, ecchymoses or lesions. Cool and dry. Bilateral heal blisters, non open, non infected HEAD: Atraumatic. Normocephalic. No temporal or scalp tenderness. EYES: Pupils equal round and reactive. Extraocular motions intact. ENT: Nose without bleeding, purulent drainage or septal hematoma. Airway patent. NECK: Trachea midline. No JVD or lymphadenopathy. CARDIOVASCULAR: Regular rate and rhythm without murmurs, gallops, or rubs. RESPIRATORY: Clear to auscultation. Breath sounds equal bilaterally. Slight scattered wheezes GASTROINTESTINAL: Abdomen soft, non-tender, nondistended. No hepato-splenomegaly , or palpable masses. No guarding. MUSCULOSKELETAL: Extremities without clubbing, cyanosis, or edema. No joint tenderness, effusion, or edema noted. No calf tenderness. NEUROLOGICAL: Awake and alert. Motor and sensory grossly within normal limits. Five out of 5 muscle strength in all muscle groups. Normal speech. Assessment and Plan Problem List: (1) DM (diabetes mellitus) ICD Code: E11.9 Status: Chronic (2) Adjustment disorder ICD Code: F43.20 Status: Acute (3) Asthma ICD Code: J45.909 Status: Acute (4) Blisters of multiple sites ICD Code: R23.8 Status: Acute Assessment and Plan 41 y/o male with a history of DM, asthma, and depression presented to the hospital because he was feeling down and out. Thoughts of hurting himself but did not have a plan. [facility] was consulted for medical management of chronic medical conditions. Adjustment disorder -managed by psychiatry Dm, chronic, patient takes Levemir 16us hs, 70/30 15 units AM and PM -Cont home Levemir 16 units HS -ACCU checks with SSI will restart 70/30 if needed, cont to monitor -A1C pending -Diabetic diet Asthma, chronic, patient with slight wheezing, no sob -Restart home albuterol inhaler prn -Duoneb x 1 now DVT prophylaxis: low risk, encourage ambulation Thank you for the consult, we will continue to follow. Discussed Condition With Patient and Jena Remy Apr 09, 2017 17:10
[2017-04-09] MEDS ORDERED: ALBUTEROL SULFATE 90 MCG/ACT HFA 18 GM INHALER INH PRN (17:15)
[2017-04-09] MEDS ORDERED: RESP: ALBUTEROL 2.5 MG/IPRATROPIUM 0.5 MG NEB (SCH) NEB ONE (17:45)
[2017-04-09] MEDS: INSULIN DETEMIR 100 UNITS/ML VIAL SQ SCH (21:00)
[2017-04-09] MEDS: diphenhydrAMINE HCL 50 MG CAP PO PRN (21:53)
[2017-04-10 05:25] VITALS: BP 134/66; PULSE 71; RESP 16; TEMP 97.6; O2SAT 98
[2017-04-10] MEDS: INSULIN ASPART SUPPLEMENTAL SCALE SQ SCH ×4 (06:11→20:43)
[2017-04-10] MEDS: NICOTINE 21 MG/24 HR PATCH T-DERMAL SCH (09:00)
[2017-04-10] MEDS: REMOVE OLD PATCH T-DERMAL SCH (09:00)
[2017-04-10] MEDS: FOLIC ACID 1 MG TAB PO SCH (09:22)
[2017-04-10] MEDS: THIAMINE HCL 100 MG TAB PO SCH (09:22)
[2017-04-10 10:38] LABS: ANION GAP 7 MEQ/L (5-15); BICARBONATE 29.6 MEQ/L (21.0-32.0); BLOOD UREA NITROGEN 10 MG/DL (7-18); CHLORIDE 98 MEQ/L (98-107); GLOMERULAR FILTRATION RATE 139 ML/MIN (>89); POTASSIUM 3.9 MEQ/L (3.5-5.1); SODIUM (NA) 135 MEQ/L (136-145)
[2017-04-10 10:42] LABS: LDL CHOLESTEROL 145 MG/DL (0-99)
--- NOTE | 2017-04-10 11:33 | HHI.HP ---
Provisional Diagnosis Admission Date Apr 09, 2017 at 14:22 [place] I. 1. Adjustment disorder with mixed disturbance of emotions and conduct Rule out drug-induced mood disorder 2. Polysubstance abuse including alcohol and amphetamines [place] II. Deferred [place] V. GAF is 40 presently Certification of Person's Competence To Provide Express and Informed Consent I have personally examined Herve Stark , a person being served at [facility] on, Apr 10, 2017 11:33. Express and informed consent means consent voluntarily given in writing, by a competent person, after sufficient explanation and disclosure of the subject matter involved to enable the person to make a knowing and willful decision without any element of force, fraud, deceit, duress, or other form of constraint or coercion. This person is 18 years of age or older, is not now known to be incompetent to consent to treatment with a guardian advocate, and does not have a health care surrogate or proxy currently making medical treatment decisions. I have found this person to be one of the following: [x] Competent to provide express and informed consent, as defined above, for voluntary admission to this facility and is competent to provide express and informed consent for treatment. He/she has the consistent capacity to make well reasoned, willful, and knowing decisions concerning his or her medical or mental health treatment. The person fully and consistently understands the purpose of the admission for examination/placement and is fully capable of personally exercising all rights assured [place] [] Incompetent to provide express and informed consent to voluntary admission, and this is incompetent to provide express and informed consent to treatment. The person must be transferred to involuntary status and a petition for a guardian advocate filed with the Circuit Court. [] Refusing to provide express and informed consent to voluntary admission but is competent to provide express and informed consent for treatment. The person must be discharged or transferred to involuntary status. Form shall be completed within 24 hours of a person's arrival at the receiving facility and filed in the clinical record of each person: 1. Admitted on a voluntary basis 2. Permitted to provide express and informed consent to his/her own treatment 3. Allowed to transfer from involuntary to voluntary status 4. Prior to permitting a person to consent to his or her own treatment after having been previously found incompetent to consent to treatment. History of Present Illness Capacity: Has Capacity HPI Mr. Stark is a 41-year-old male with a history of substance use issues who presents in transfer from the [place] facility under a [place]o act. He initially was brought to [place] in diabetic ketoacidosis secondary to nonadherence with his insulin regimen. I saw the patient in consultation at [place] and placed him under the Caro act and recommended inpatient psychiatric hospitalization once medically stable. Electronic medical record reviewed. Patient seen and examined with counselor and nurse. Chart reviewed. Case discussed with nursing staff on the inpatient unit who reports that the patient is a little bit guarded and seclusive but denied suicidal ideation. On my examination today, the patient remains fairly dysphoric. He says that he slept poorly overnight. Appetite fair. He denies suicidal ideation but says that he has "no reason to be here." He says that these feelings are fairly long- standing. Somewhat anhedonic. No hypomanic or manic symptoms. No psychotic symptoms. No physical complaints. I obtained patient's past psychiatric, family, chemical dependency and social history during my initial consultation yesterday, and these are unchanged today: Past psychiatric history: The patient denies a history of psychiatric diagnosis. He denies a history of inpatient or outpatient psychiatric treatment. He denies a history of suicide attempts. Family history: The patient denies a family history of serious mental illness, substance use disorder or suicide. Chemical dependency history: The patient reports that he abuses methamphetamines a few times a week. He reports that his alcohol consumption has been somewhat curtailed of late and he drinks perhaps 2-4 beers daily. His longest sober time is on the order of days. He does endorse a history of blackouts but denies history of DTs, seizures or DUIs. No other substance use reported. Social history: Patient denies any history of physical, verbal or sexual abuse. He says that he had been living with his girlfriend of several years but she was unfaithful and the 2 have broken up and this has rendered him homeless about a week ago. He has a 10th grade education. He has no income. 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 He is single with no children. Denies any history. Denies any current legal issues. The patient does have a history of drug crime but denies any history of violent crime. Denies any access to guns or firearms. He is a Nondenominational. Review of Systems Except as stated in HPI: all other systems reviewed are Neg Past Psych History Psychological trauma history Denies a history of trauma Violence risk - others (6 mos) Lower imminent risk. No homicidal ideation. Violence risk - self (6 mos) Moderate risk. Patient remains fairly dysphoric and says that he has no reason to be here [[place]e. [place]], although he denies suicidal ideation per se. Substance Abuse History Drugs/Alcohol past 12 months See above Past Family Social History Coded Allergies: Shellfish (Verified Allergy, Severe, 04/07/17) Past Medical History See electronic medical record Active Scripts Alcohol Swabs (Alcohol Prep Pads)70 % Pad #1 PAD .ROUTE DIRECTED Ref 0 Prov:Marcellus Florian MD 04/05/17 Insulin Syringe/Needle U-100 (Insulin Syringe/U-100/1Ml 28G X 1/2" 1 ml)1 Mis Mis #1 Ea .route As Directed Prov:Marcellus Florian MD 04/05/17 Lancets 1 Mis Mis #1 EA .ROUTE DIRECTED Ref 0 Prov:Marcellus Florian MD 04/05/17 Blood Glucose Test Strips Strips Strip #1 EA .ROUTE DIRECTED Ref 0 Prov:Marcellus Florian MD 04/05/17 Blood Glucose Monitoring W/Device 1 Kit Kit #1 KIT .ROUTE DIRECTED Ref 0 Prov:Marcellus Florian MD 04/05/17 Insulin Aspart Inj (Novolog Inj)100 Unit/Ml Inj1 Injection SQ ACHS SLIDING SCALE 30 Days Prov:Marcellus Florian MD 04/05/17 Insulin Detemir Inj (Levemir Inj)1,000 unit/ 10 ML Vial16 Units SQ HS 30 Days Prov:Marcellus Florian MD 04/05/17 Discontinued Reported Medications Insulin Aspart Protam-Asp 70-30 Inj (Novolog Mix 70-30 Inj)1,000 Unit/10 Ml Vial30 Units SQ DAILY #10 ML Ref 0 03/09/17 Insulin Aspart Protam-Asp 70-30 Inj (Novolog Mix 70-30 Inj)1,000 Unit/10 Ml Vial40 Units SQ HS #10 ML Ref 0 03/09/17 Discontinued Scripts Prednisone 50 Mg Tab50 Mg PO BID #12 TAB Ref 0 Prov:Matt Kowalski MD 03/09/17 Albuterol 6.7 GM Inh (Proventil Hfa 6.7 GM Inh)90 Mcg/Act Aer2 Puff INH Q4-6H PRN (SHORTNESS OF BREATH) #1 INHALER Ref 0 Prov:Matt Kowalski MD 03/09/17 Ciprofloxacin (Cipro)500 Mg [id number] Mg PO BID #20 TAB Ref 0 Prov:Juan Benton MD 02/06/17 Current Medications Medications (Trade) Dose Ordered Sig/Kady Route Start Time Stop Time Status Last Admin (Benadryl) 50 mg HS PRN PO 04/09/17 14:30 04/09/17 21:53 (Tylenol) 650 mg Q4H PRN PO 04/09/17 14:30 04/10/17 06:13 (Milk Of Magnesia Liq) 30 ml DAILY PRN PO 04/09/17 14:30 (Mag-Al Plus Susp Liq) 30 ml Q6H PRN PO 04/09/17 14:30 (Habitrol 21 Mg Patch.24 Hr) 1 patch DAILY T-DERMAL 04/10/17 09:00 (Atarax) 50 mg Q6H PRN PO 04/09/17 14:30 (Cogentin) 1 mg Q12H PRN PO 04/09/17 14:30 (Cogentin Inj) 1 mg Q12H PRN IM 04/09/17 14:30 (Romazicon Inj) 0.2 mg Q1M PRN IV PUSH 04/09/17 14:30 (Ativan) 1 mg Q4H PRN PO 04/09/17 14:30 (Ativan Inj) 1 mg Q4H PRN IV PUSH 04/09/17 14:30 (Ativan) 2 mg Q2H PRN PO 04/09/17 14:30 (Ativan Inj) 2 mg Q2H PRN IV PUSH 04/09/17 14:30 (Ativan Inj) 2 mg Q1H PRN IV PUSH 04/09/17 14:30 (Ativan Inj) 2 mg Q15M PRN IV PUSH 04/09/17 14:30 Miscellaneous Information 1 DAILY T-DERMAL 04/10/17 09:00 (Levemir Inj) 16 units HS SQ 04/09/17 21:00 04/09/17 21:00 (D50w (Vial) Inj) 50 ml UNSCH PRN IV 04/09/17 14:45 (Glucagon Inj) 1 mg UNSCH PRN OTHER 04/09/17 14:45 (Vitamin B1) 100 mg DAILY PO 04/10/17 09:00 04/10/17 09:22 (Folate) 1 mg DAILY PO 04/10/17 09:00 04/10/17 09:22 (Ventolin Hfa Inh) 2 puff Q6H PRN INH 04/09/17 17:15 Family History See above Social History See above Patient's Strengths (min. 2) In a monitored setting. Verbally fluent. Physical Exam Physical examination completed by hospitalist home planning consultant salesperson. On my examination today, the patient appears to be in no acute physical distress. No signs of withdrawal noted. No other motoric abnormalities noted. Laboratories and vital signs reviewed: Vital Signs Vital Signs Date Time Temp Pulse Resp B/P Pulse Ox O2 Delivery O2 Flow Rate FiO2 04/10/17 05:25 97.6 71 16 134/66 98 Lab Results Item Value Date Time White Blood Count 8.4 TH/MM3 04/07/17 1350 Hemoglobin 13.3 GM/DL 04/07/17 1350 Platelet Count 266 TH/MM3 04/07/17 1350 Sodium Level 135 MEQ/L L 04/10/17 0835 Potassium Level 3.9 MEQ/L 04/10/17 0835 Carbon Dioxide Level 29.6 MEQ/L 04/10/17 0835 Chloride Level 98 MEQ/L 04/10/17 0835 Anion Gap 7 MEQ/L 04/10/17 0835 Blood Urea Nitrogen 10 MG/DL 04/10/17 0835 Creatinine 0.63 MG/DL 04/10/17 0835 Estimat Glomerular Filtration Rate 139 ML/MIN 04/10/17 0835 Random Glucose 215 MG/DL H 04/10/17 0835 Urine Amphetamines Screen POS H 04/07/17 1320 Ethyl Alcohol Level LESS THAN 3 MG/DL 04/07/17 1350 Mental Status Examination Patient is in hospital gown. He is fairly well groomed. He is awake and alert and oriented 3. No evidence of delirium. No motor abnormalities noted. Speech is somewhat slow with increased speech latency. Language and fund of knowledge seem average. Focus and concentration intact. Memory grossly intact on clinical exam. Mood remains depressed and affect restricted and dysphoric. Thought process linear. No loosening of associations. No evident delusional material. No audiovisual hallucinations. Denies suicidal ideation but see above. No homicidal ideation. Insight and judgment are fair. Assessment & Plan Problem List: (1) Adjustment disorder ICD Code: F43.20 (2) Polysubstance abuse ICD Code: F19.10 Assessment & Plan This is a 41-year-old male with psychiatric history as detailed above who presents in transfer from [place] under a Caro act. Patient has several acute psychosocial stressors including homelessness, breaking up with his girlfriend and job loss, and I do suspect that he is experiencing an adjustment reaction, although there may also be a component of drug induced mood disorder as well as underlying dysthymia given the reportedly long- standing dysphoria he reports today. I have discussed with the patient has pharmacotherapeutic options for management of this dysphoria and after discussion of the risks and benefits we have settled on a trial of Remeron. I will plan to admit the patient to the inpatient psychiatric unit for observation and stabilization. Admit inpatient. Voluntary status. Consult to the hospitalist. I will continue patient's scheduled insulin along with Accu-Cheks and sliding scale. Initiate Remeron 15 mg at bedtime. CIWA scale with Ativan for the management of any withdrawal. Thiamine and folate. Seizure and fall precautions. Vitals every shift. Counselor to see. Disposition planning. Estimated length of stay : 3-5 days. Discharge Planning Anticipate discharge after the weekend Request HC Surrog/Guard Advoc?: No Problem Qualifiers (1) Adjustment disorder: Qualified Code: F43.25 - Adjustment disorder with mixed disturbance of emotions and conduct Cesario Olivares MD Apr 10, 2017 11:33
[2017-04-10 15:48] LABS: HEMOGLOBIN A1a 1.4 %; HEMOGLOBIN A1b 0.9 %; HEMOGLOBIN Ao 76.5 %; HEMOGLOBIN F 1.8 %; HEMOGLOBIN LA1C 2.5 %; HEMOGLOBIN P3 4.6 %
[2017-04-10 19:22] VITALS: BP 136/71; PULSE 73; RESP 18; TEMP 98.1; O2SAT 96
[2017-04-10] MEDS: INSULIN DETEMIR 100 UNITS/ML VIAL SQ SCH (20:41)
[2017-04-10] MEDS: diphenhydrAMINE HCL 50 MG CAP PO PRN (20:44)
[2017-04-10] MEDS: MIRTAZAPINE 15 MG TAB PO SCH (20:44)
[2017-04-11 06:20] VITALS: BP 122/68; PULSE 76; RESP 20; TEMP 97.6; O2SAT 98
[2017-04-11] MEDS: INSULIN ASPART SUPPLEMENTAL SCALE SQ SCH ×4 (06:23→20:37)
[2017-04-11] MEDS: NICOTINE 21 MG/24 HR PATCH T-DERMAL SCH (09:00)
[2017-04-11] MEDS: REMOVE OLD PATCH T-DERMAL SCH (09:00)
[2017-04-11] MEDS: THIAMINE HCL 100 MG TAB PO SCH (09:26)
[2017-04-11] MEDS: FOLIC ACID 1 MG TAB PO SCH (09:26)
--- NOTE | 2017-04-11 14:32 | HHI.PR ---
Subjective Remarks Follow-up visit for diabetes, asthma, and depression. Patient seen and examined today. Reports he is doing well. Denies pain and discomfort. Denies SOB/ dyspnea. Denies chest pain, palpitations, headaches, dizziness. Denies fevers, chills, n/v/d. Denies hematuria, dysuria. Objective Vitals Vital Signs Date Time Temp Pulse Resp B/P Pulse Ox O2 Delivery O2 Flow Rate FiO2 04/11/17 06:20 97.6 76 20 122/68 98 04/10/17 19:22 98.1 73 18 136/71 96 I/O 04/10/17 04/10/17 04/10/17 04/11/17 04/11/17 04/11/17 07:00 15:00 23:00 07:00 15:00 23:00 Intake Total 480 ml Balance 480 ml Intake Oral 480 ml Result Diagram: 04/10/17 0835 Objective Remarks GENERAL: This is a well-nourished, well-developed patient, in no apparent distress. SKIN: Warm and dry. HEENT: Normocephalic. Pupils equal round and reactive. Nose without bleeding. Airway patent. NECK: Trachea midline. No JVD. Supple. CARDIOVASCULAR: Regular rate and rhythm without murmurs, gallops, or rubs. RESPIRATORY: Clear to auscultation. Breath sounds equal bilaterally. No wheezes , rales, or rhonchi. GASTROINTESTINAL: Abdomen soft, non-tender, nondistended. Bowel Sounds normoactive x4. MUSCULOSKELETAL: Extremities without clubbing, cyanosis, or edema. NEUROLOGICAL: Awake and alert. Oriented to time, place, person. No focal neuro deficit. Moves all extremities. Normal speech. A/P Problem List: (1) DM (diabetes mellitus) ICD Code: E11.9 Status: Chronic (2) Adjustment disorder ICD Code: F43.20 Status: Acute (3) Asthma ICD Code: J45.909 Status: Acute (4) Blisters of multiple sites ICD Code: R23.8 Status: Acute Assessment and Plan 41 y/o male with a history of DM, asthma, and depression presented to the hospital because he was feeling down and out. Thoughts of hurting himself but did not have a plan. [facility] was consulted for medical management of chronic medical conditions. Adjustment disorder -managed by psychiatry DM2 - Non compliant with regimen. States he takes 70/30 at home but has failed to take it because all of his belongings are still in his ex-girlfriend's house. Episode of DKA recently. - During his hospitalization he was given Levemir dose daily at bedtime. - HgA1C 12.1. Discussed compliance with patient - Switch patient to 70/30 home dose. May benefit with metformin in addition to insulin. Hyperlipidemia - ASCVD [id number] 9.7%. Recommended for high intensity statin - Will start patient on Lipitor 20 mg daily Asthma, chronic - Restart home albuterol inhaler prn - Monitor respiratory status - Consult with smoking cessation. Patient declines use of nicotine patch. States it's make him want to smoke. DVT prophylaxis early ambulation Problem Qualifiers (1) Adjustment disorder: Qualified Code: F43.25 - Adjustment disorder with mixed disturbance of emotions and conduct Marissa Dyer Apr 11, 2017 14:32
--- NOTE | 2017-04-11 14:32 | HHI.PYPN ---
Subjective Remarks Patient was seen and case discussed with nursing. Patient interviewed in bed. Mood remains depressed with a blunted affect. ciwa is 0 and there are no alcohol withdrawal symptoms at this time. He is seclusive to his room not going to groups. Describes various stressors that have led to homelessness. Minimizes his drug use. Denies suicidal ideation intent or plan. Is compliant with his medications Objective Alert: Yes Yeso: Person, Place, Date, Situation Mood: Depressed Affect: Blunted Memory Intact: Immediate (appears intact) Hallucinations: Auditory (denies) Delusions: No Delusion Type: Other (none elicited) Suicidal: Ideation (denies) Homicidal: Ideation (denies) Insight/Judgment Fair Vitals/IOs Vital Signs Date Time Temp Pulse Resp B/P Pulse Ox O2 Delivery O2 Flow Rate FiO2 04/11/17 06:20 97.6 76 20 122/68 98 Intake and Output 04/10/17 04/10/17 04/11/17 08:00 16:00 00:00 Intake Total 480 ml Balance 480 ml Assessment & Plan Problem List: (1) Adjustment disorder ICD Code: F43.20 (2) Polysubstance abuse ICD Code: F19.10 Assessment & Plan Continue current treatment plan Justification for Cont. Inpt. Patient will decompensate in a less restrictive setting Request HC Surrog/Guard Advoc?: No Problem Qualifiers (1) Adjustment disorder: Qualified Code: F43.25 - Adjustment disorder with mixed disturbance of emotions and conduct Nas Weiss DO Apr 11, 2017 14:32
[2017-04-11] MEDS: INSULIN ASPAR PROT 70/30 1,000 UNITS/10 ML VIAL SQ SCH (16:42)
[2017-04-11] MEDS: metFORMIN HCL 500 MG TAB PO SCH (16:43)
[2017-04-11 18:00] VITALS: BP 135/73; PULSE 73; RESP 20; TEMP 98.4; O2SAT 98
[2017-04-11] MEDS: MIRTAZAPINE 15 MG TAB PO SCH (20:36)
[2017-04-11] MEDS: diphenhydrAMINE HCL 50 MG CAP PO PRN (20:37)
[2017-04-12 05:50] VITALS: BP 114/60; PULSE 66; RESP 18; TEMP 97.6; O2SAT 97
[2017-04-12] MEDS: INSULIN ASPART SUPPLEMENTAL SCALE SQ SCH ×4 (06:23→20:33)
[2017-04-12] MEDS ORDERED: INSULIN ASPAR PROT 70/30 1,000 UNITS/10 ML VIAL SQ SCH (08:00)
[2017-04-12] MEDS: metFORMIN HCL 500 MG TAB PO SCH ×2 (08:21→18:00)
[2017-04-12] MEDS: THIAMINE HCL 100 MG TAB PO SCH (08:21)
[2017-04-12] MEDS: FOLIC ACID 1 MG TAB PO SCH (08:21)
[2017-04-12] MEDS: ATORVASTATIN 20 MG TAB PO SCH (08:21)
[2017-04-12] MEDS: NICOTINE 21 MG/24 HR PATCH T-DERMAL SCH (08:30)
[2017-04-12] MEDS: REMOVE OLD PATCH T-DERMAL SCH (08:30)
--- NOTE | 2017-04-12 14:51 | HHI.PYPN ---
Subjective Remarks Patient was seen and case discussed with nursing. Patient remains seclusive in his room. However he states he did go outside. Remains with the flat affect and nonspontaneous speech. Was suspicious with his medications this morning. Denies auditory visual hallucinations. No delusions elicited. Mood remains depressed, patient admits to suicidal ideation with no intent or plan. Feels hopeless Objective Alert: Yes Lewis: Person, Place, Date, Situation Mood: Depressed Affect: Blunted Memory Intact: Immediate (appears intact) Hallucinations: Auditory (denies) Delusions: No Delusion Type: Other (none elicited) Suicidal: Ideation (fleeting thoughts, no plan or intent) Homicidal: Ideation (denies) Insight/Judgment Fair Vitals/IOs Vital Signs Date Time Temp Pulse Resp B/P Pulse Ox O2 Delivery O2 Flow Rate FiO2 04/12/17 05:50 97.6 66 18 114/60 97 Assessment & Plan Problem List: (1) Adjustment disorder ICD Code: F43.20 (2) Polysubstance abuse ICD Code: F19.10 Assessment & Plan Consider starting SSRI tomorrow Justification for Cont. Inpt. Patient will decompensate in a less restrictive setting Request HC Surrog/Guard Advoc?: No Problem Qualifiers (1) Adjustment disorder: Qualified Code: F43.25 - Adjustment disorder with mixed disturbance of emotions and conduct Nas Weiss DO Apr 12, 2017 14:51
[2017-04-12 15:44] VITALS: BP 128/81; PULSE 72; RESP 18; TEMP 97.2; O2SAT 97
[2017-04-12] MEDS: INSULIN ASPAR PROT 70/30 1,000 UNITS/10 ML VIAL SQ SCH (17:00)
[2017-04-12] MEDS: MIRTAZAPINE 15 MG TAB PO SCH (20:37)
[2017-04-12] MEDS: diphenhydrAMINE HCL 50 MG CAP PO PRN (21:16)
[2017-04-13 05:52] VITALS: BP 114/67; PULSE 76; RESP 17; TEMP 97.4; O2SAT 97
[2017-04-13] MEDS: INSULIN ASPART SUPPLEMENTAL SCALE SQ SCH ×2 (06:21→11:00)
[2017-04-13] MEDS ORDERED: INSULIN ASPAR PROT 70/30 1,000 UNITS/10 ML VIAL SQ SCH ×2 (08:00→17:00)
[2017-04-13] MEDS: metFORMIN HCL 500 MG TAB PO SCH (08:40)
[2017-04-13] MEDS: FOLIC ACID 1 MG TAB PO SCH (08:40)
[2017-04-13] MEDS: THIAMINE HCL 100 MG TAB PO SCH (08:40)
[2017-04-13] MEDS: ATORVASTATIN 20 MG TAB PO SCH (08:40)
[2017-04-13] MEDS ORDERED: METF500 PO (10:34)
[2017-04-13] MEDS ORDERED: NOVOLOGMXP SQ ×2 (10:34)
[2017-04-13] MEDS ORDERED: MIRTA15 PO (10:34)
[2017-04-13] MEDS ORDERED: ATOR20TA15 PO (10:34)
--- NOTE | 2017-04-13 10:34 | HHI.DS ---
Psychiatry Discharge Summary Inpatient Psychiatric care?: Yes Advance Directive: No Reason Not Provided: none Mental Health AdvanceDirective: No Health Care Proxy: No Admission Admission Date Apr 09, 2017 at 14:22 Admission Diagnosis: (1) Adjustment disorder ICD Code: F43.20 (2) Polysubstance abuse ICD Code: F19.10 Brief History Mr. Stark is a 41-year-old male with a history of substance use issues who presents in transfer from the [facility] facility under a Caro act. He initially was brought to [facility] in diabetic ketoacidosis secondary to nonadherence with his insulin regimen. I saw the patient in consultation at [facility] and placed him under the Caro act and recommended inpatient psychiatric hospitalization once medically stable. Electronic medical record reviewed. Patient seen and examined with counselor and nurse. Chart reviewed. Case discussed with nursing staff on the inpatient unit who reports that the patient is a little bit guarded and seclusive but denied suicidal ideation. On my examination today, the patient remains fairly dysphoric. He says that he slept poorly overnight. Appetite fair. He denies suicidal ideation but says that he has "no reason to be here." He says that these feelings are fairly long- standing. Somewhat anhedonic. No hypomanic or manic symptoms. No psychotic symptoms. No physical complaints. I obtained patient's past psychiatric, family, chemical dependency and social history during my initial consultation yesterday, and these are unchanged today: Past psychiatric history: The patient denies a history of psychiatric diagnosis. He denies a history of inpatient or outpatient psychiatric treatment. He denies a history of suicide attempts. Family history: The patient denies a family history of serious mental illness, substance use disorder or suicide. Chemical dependency history: The patient reports that he abuses methamphetamines a few times a week. He reports that his alcohol consumption has been somewhat curtailed of late and he drinks perhaps 2-4 beers daily. His longest sober time is on the order of days. He does endorse a history of blackouts but denies history of DTs, seizures or DUIs. No other substance use reported. Social history: Patient denies any history of physical, verbal or sexual abuse. He says that he had been living with his girlfriend of several years but she was unfaithful and the 2 have broken up and this has rendered him homeless about a week ago. He has a 10th grade education. He has no income. 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 He is single with no children. Denies any history. Denies any current legal issues. The patient does have a history of drug crime but denies any history of violent crime. Denies any access to guns or firearms. He is a [employer]. Tobacco Use In Past 30 Days: 4 or Less Cigarettes/Day Alcohol Use: 4 or More Times Per Week Hospital Course Patient was admitted to a locked, inpatient psychiatric unit. A general medical consultation was obtained. Appropriate precautions were in place throughout patient's hospital stay. Patient was seen and examined daily on the unit by psychiatry and also visited by counselor. Medications were adjusted. Patient tolerated medications well without side effects. Patient had improvement in his presenting psychiatric symptomatology. There was no evidence of any suicidality or homicidality on the inpatient unit. Patient remained in good behavioral control and was medication compliant. On the day of discharge: Patient seen and examined with counselor and nurse. Chart reviewed. Case discussed with nursing staff. Patient has been no behavioral problem per nursing staff and is denying suicidal ideation. On my examination today, the patient denies any suicidal or homicidal ideation, intent or plan. Mood improved versus admission. He is more future oriented now and says that his plan is to get into sober living facility and then work on looking for a new job. No severe depressive or hypomanic/manic symptoms noted. No audiovisual hallucinations, and I can elicit no delusional beliefs. Patient denies side effects from medications. No physical complaints. 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 Patient will be discharged today with psychiatric follow-up as arranged by counselor. Patient is also to follow-up with primary care, and patient will be provided with a blue card for outpatient medical follow-up. I have counseled patient regarding warning signs for need to return to the psychiatric emergency room as part of the general safety plan. Results Blood Pressure 114 / 67 Vital Signs Date Time Temp Pulse Resp B/P Pulse Ox O2 Delivery O2 Flow Rate FiO2 04/13/17 05:52 97.4 76 17 114/67 97 Laboratory Results Test 04/10/17 08:35 Hemoglobin A1c 12.1 % (4.3-6.0) Triglycerides Level 172 MG/DL (42-150) Cholesterol Level 231 MG/DL (120-200) LDL Cholesterol 145 MG/DL (0-99) HDL Cholesterol 52.0 MG/DL (40.0-60.0) Summary of Procedures None done Imaging None done Pending results at discharge: No Medications # of Antipsychotic meds at D/C: 0 Approp Antipsych med options 1 - Minimum of three failed multiple trials of monotherapy. 2 - Documented plan to taper to monotherapy due to previous use of multiple meds OR cross-taper in progress at D/C. 3 - Documentation of augmentation of Clozapine. 4 - Justification other than those listed in allowable values 1-3, document here : Discharge Discharge Date: Apr 13, 2017 Discharge Diagnosis: (1) Adjustment disorder Diagnosis: Principal (improved) ICD Code: F43.20 (2) Polysubstance abuse Diagnosis: Secondary (counseled to quit) ICD Code: F19.10 GAF on discharge is 60 Mental Status Exam at Disch Patient is in hospital attire. He is well groomed and maintaining basic hygiene. He appears to be attending to basic needs. He is awake and alert and oriented 3. No abnormal motor movements noted. No signs of withdrawal noted. Speech is within normal limits for rate, tone and volume. Language and fund of knowledge seemed average. Focus and concentration intact. Memory is grossly intact on clinical exam. Mood is somewhat improved versus admission. Affect remains somewhat blunted. Thought processes linear. No loosening of associations. No evident delusional beliefs. No audiovisual hallucinations. Denies suicidal or homicidal ideation, intent or plan. Insight and judgment are fair. Pt Condition on Discharge: Stable Discharge Disposition: Discharge Home Discharge Instructions Diet Instructions: Diabetic Diet Activities you can perform: Weight Bearing as Kriss Scheduled Appointment: as per counselor's notes New Medications: Atorvastatin (Atorvastatin) 20 Mg Tab 20 MG PO DAILY Cholesterol Management Days 10 Ref 2 TAB Insulin Aspart Protam-Asp 70-30 Inj (Novolog Mix 70-30 Inj) 1,000 Unit/10 Ml Vial 35 UNITS SQ DAILY@17 Blood Sugar Management Days 10 Ref 2 INJECTION Insulin Aspart Protam-Asp 70-30 Inj (Novolog Mix 70-30 Inj) 1,000 Unit/10 Ml Vial 25 UNITS SQ DAILY@08 Blood Sugar Management Days 10 Ref 2 INJECTION Metformin (Glucophage) 500 Mg Tab 500 MG PO BIDPC Blood Sugar Management Days 10 Ref 2 TAB Mirtazapine (Mirtazapine) 15 Mg Tab 15 MG PO HS Mental Health Days 10 Ref 2 TAB Continued Medications: Alcohol Swabs (Alcohol Prep Pads) 70 % Pad 1 PAD .ROUTE DIRECTED Aseptic process #1 Ref 0 BOX Blood Glucose Monitoring W/Device (Blood Glucose Monitoring W/Device) 1 Kit Kit 1 KIT .ROUTE DIRECTED Blood Sugar Management #1 Ref 0 KIT Blood Glucose Test Strips (Blood Glucose Test Strips) Strips Strip 1 EA .ROUTE DIRECTED Blood Sugar Management #1 Ref 0 BOX Insulin Syringe/Needle U-100 (Insulin Syringe/U-100/1Ml 28G X 1/2" 1 ml) 1 Mis Mis 1 EA .ROUTE DIRECTED Blood Sugar Management #1 BOX Lancets (Lancets) 1 Mis Mis 1 EA .ROUTE DIRECTED Blood Sugar Management #1 Ref 0 BOX Discontinued Medications: Insulin Aspart Inj (Novolog Inj) 100 Unit/Ml Inj 1 INJECTION SQ ACHS SLIDING SCALE Blood Sugar Management Days 30 INJECTION Insulin Detemir Inj (Levemir Inj) 1,000 unit/ 10 ML Vial 16 UNITS SQ HS Blood Sugar Management Days 30 INJECTION Discharge Time <= 30 minutes Discharge/Advance Care Plan Health Problems: (1) Adjustment disorder (2) Polysubstance abuse Goals to promote your health * To prevent worsening of your condition and complications * To maintain your health at the optimal level Directions to meet your goals Take your medications as prescribed Follow your dietary instruction Follow activity as directed Keep your appointments as scheduled Take your immunizations and boosters as scheduled If your symptoms worsen call your PCP, if no PCP go to Urgent Care Center or Emergency Room For 24/ questions related to your inpatient stay or results of tests pending at discharge, please contact Dr. Cesario Olivares at Smoking is Dangerous to Your Health. Avoid second hand smoking Problem Qualifiers (1) Adjustment disorder: Qualified Code: F43.25 - Adjustment disorder with mixed disturbance of emotions and conduct Cesario Olivares MD Apr 13, 2017 10:34
--- NOTE | 2017-04-13 11:13 | HHI.PR ---
Subjective Remarks Follow-up visit for diabetes, asthma, and depression. Patient seen and examined today. Patient reports he continues to feel down. Denies suicidal ideation, homicidal ideation. Denies pain and discomfort. Denies SOB/ dyspnea. Denies chest pain, palpitations, headaches, dizziness. Denies fevers, chills, n/v/d. Denies hematuria, dysuria. Objective Vitals Vital Signs Date Time Temp Pulse Resp B/P Pulse Ox O2 Delivery O2 Flow Rate FiO2 04/13/17 05:52 97.4 76 17 114/67 97 04/12/17 15:44 97.2 72 18 128/81 97 Result Diagram: 04/10/17 0835 Objective Remarks GENERAL: This is a well-nourished, well-developed patient, in no apparent distress. SKIN: Warm and dry. HEENT: Normocephalic. Pupils equal round and reactive. Nose without bleeding. Airway patent. NECK: Trachea midline. No JVD. Supple. CARDIOVASCULAR: Regular rate and rhythm without murmurs, gallops, or rubs. RESPIRATORY: Clear to auscultation. Breath sounds equal bilaterally. No wheezes , rales, or rhonchi. GASTROINTESTINAL: Abdomen soft, non-tender, nondistended. Bowel Sounds normoactive x4. MUSCULOSKELETAL: Extremities without clubbing, cyanosis, or edema. NEUROLOGICAL: Awake and alert. Oriented to time, place, person. No focal neuro deficit. Moves all extremities. Normal speech. A/P Problem List: (1) DM (diabetes mellitus) ICD Code: E11.9 Status: Chronic (2) Adjustment disorder ICD Code: F43.20 Status: Acute (3) Asthma ICD Code: J45.909 Status: Acute (4) Blisters of multiple sites ICD Code: R23.8 Status: Acute Assessment and Plan 41 y/o male with a history of DM, asthma, and depression presented to the hospital because he was feeling down and out. Thoughts of hurting himself but did not have a plan. [facility] was consulted for medical management of chronic medical conditions. Adjustment disorder, depression - managed by psychiatry DM2 - Non compliant with regimen. States he takes 70/30 at home but has failed to take it because all of his belongings are still in his ex-girlfriend's house. Episode of DKA recently. - During his hospitalization he was given Levemir dose daily at bedtime. - HgA1C 12.1. Discussed compliance with patient - Switch patient to 70/30 home dose. On metformin 500mg BID. Notable improvement with BG level. - Decrease 70/30 35units QPM and 70/30 25units in AM. - Continue to monitor blood glucose level. Monitor for hypoglycemia. - Patient states that he was on metformin before and had no adverse reaction. Discussed metformin being added to his 7030 dose medication significantly improved his blood glucose. Hyperlipidemia - ASCVD lucv15Tc 9.7%. Recommended for high intensity statin - On Lipitor 20 mg daily - Discuss use of statin with patient. Asthma, chronic - Restart home albuterol inhaler prn - Monitor respiratory status - Consult with smoking cessation. Patient declines use of nicotine patch. States it's make him want to smoke. DVT prophylaxis early ambulation Problem Qualifiers (1) Adjustment disorder: Qualified Code: F43.25 - Adjustment disorder with mixed disturbance of emotions and conduct Marissa Dyer Apr 13, 2017 11:13
== END 2017-04-13 16:05 | disposition home or self-care (01) | DRG 882 ==
LOC: H260 14:22
PROVIDERS: ADMIT Psychiatry & Neurology Psychiatry; ATTEND Psychiatry & Neurology Psychiatry
DX: F43.25 Adjustment disorder with mixed disturbance of emotions and conduct (principal); R45.851 Suicidal ideations; Z91.19 Patient's noncompliance with other medical treatment and regimen; F15.10 Other stimulant abuse, uncomplicated; F10.10 Alcohol abuse, uncomplicated; R23.8 Other skin changes; E11.9 Type 2 diabetes mellitus without complications; F32.9 Major depressive disorder, single episode, unspecified; E78.5 Hyperlipidemia, unspecified; F17.210 Nicotine dependence, cigarettes, uncomplicated; J45.909 Unspecified asthma, uncomplicated; Z79.4 Long term (current) use of insulin; Z59.0 Homelessness
CPT/HCPCS: 80048; 80061; 82948; 83036; J1815; Q0163